=== PATIENT | male | born 1960 | race Caucasian/White ===

== ENCOUNTER 2018-11-20 16:58 | Inpatient (IN) ==
[2018-11-20] MEDS ORDERED: LASIX IV ONE ×2 (17:39→18:44)
[2018-11-20] MEDS ORDERED: DUONEB (A & A) INH ONE (17:39)
--- NOTE | 2018-11-20 17:45 | PROVIDER DOCUMENTATION ---
HPI-Respiratory General - General Chief Complaint: Shortness of Breath Stated Complaint: SOB Time Seen by Provider: 11/20/18 17:30 Source: EMS Allergies/Adverse Reactions: Patient Allergies Allergy/AdvReac Type Severity Reaction Status Date / Time sulfacetamide Allergy Intermediate EYE Verified 04/29/18 14:24 SWELLING Iodinated Contrast- Oral and Allergy Unknown Unknown Verified 04/29/18 14:24 IV Dye NSAIDS (Non-Steroidal AdvReac Unknown Verified 04/29/18 14:24 Anti-Inflamma Home Medications: Home Medication List Medication Instructions Recorded Confirmed Last Taken Type Allopurinol [Zyloprim] 300 mg PO DAILY 01/28/17 04/29/18 03/17/18 07:00 History Azelastine 0.05% Oph Solution 1 drop BOTH EYES BID 01/28/17 04/29/18 03/17/18 07 :00 History [Optivar 0.05% Oph Solution] Divalproex E.r. [Depakote ER] 1,500 mg PO QHS 01/28/17 04/29/18 03/16/18 21:00 History Docusate Calcium 240 mg PO EVERY OTHER DAY 01/28/17 04/29/18 03/16/18 09:00 History Finasteride 5 mg PO HS 01/28/17 04/29/18 03/16/18 19:00 History Furosemide 40 mg PO DAILY 01/28/17 04/29/18 03/17/18 07:00 History Levothyroxine [Synthroid] 137 microgm PO .DAILY AT 0600 01/28/17 04/29/18 06:00 History Montelukast [Singulair] 10 mg PO QHS 01/28/17 04/29/18 03/16/18 19:00 History Multivitamins/Minerals [Centrum 1 each PO DAILY 01/28/17 04/29/18 03/17/18 07: 00 History Tablet] Omeprazole 20 mg PO DAILY 01/28/17 04/29/18 03/17/18 07:00 History Polyethylene Glycol 3350 [Miralax] 17 gm PO BID 01/28/17 04/29/18 03/16/18 21: 00 History Quetiapine [Seroquel] 300 mg PO TID 01/28/17 04/29/18 03/17/18 07:00 History SIMVAstatin [Zocor] 10 mg PO QHS 01/28/17 04/29/18 03/16/18 19:00 History Tamsulosin [Flomax] 0.4 mg PO DAILY 01/28/17 04/29/18 03/17/18 07:00 History Albuterol 2.5MG/Ipratrop 0.5MG 3 ml .SEE ORDER Q6H PRN PRN #20 neb 02/18/1808/07 Unknown Rx [Duoneb (A & A)] Aspirin EC 325 mg PO DAILY 03/11/18 04/29/18 03/17/18 07:00 History Diltiazem [Cardizem] 30 mg PO TID #90 tab 03/16/18 04/29/18 03/17/18 07:00 Rx Metoprolol [Lopressor] 100 mg PO BID #60 tab 03/16/18 04/29/18 03/17/18 07:00 Rx Apixaban [Eliquis] 5 mg PO BID 04/29/18 04/29/18 Unknown History Budesonide/Formoterol Fumarate 2 puff IN BID 04/29/18 04/29/18 Unknown History [Symbicort 80-4.5 Mcg Inhaler] Cholecalciferol (Vitamin D3) 1 cap PO DAILY 04/29/18 04/29/18 Unknown History [Vitamin D3] Dextran 70/Hypromellose 1 drop BOTH EYES 4XDAY 04/29/18 04/29/18 Unknown History [Artificial Tears] Icosapent Ethyl [Vascepa] 2 cap PO BID 04/29/18 04/29/18 Unknown History Lubiprostone [Amitiza] 1 cap PO BID 04/29/18 04/29/18 Unknown History Clonazepam [Klonopin] 1 mg PO QHS #0 05/03/18 04/29/18 03/16/18 21:00 Rx Levofloxacin [Levaquin] 500 mg PO DAILY #45 tab 05/03/18 Unknown Rx - History of Present Illness-Resp Nature of Presenting Problem: Patient has history of CHF and AFIB, has been SOB with productive cough for a bout a week, worsening. He saw his PCP a few days ago and was put on augmentin bid 2 days ago. Noted by home health today to be decreased activity level, pale , rhonchi on lungs, mild distress. Canary Breeder notes green sputum. Quality of Pain: reports: none Onset/Duration: reports: 1 week ago Timing: reports: still present, constant, changing over time, getting worse Context: reports: multiple patients with similar complaints, recent URI Exposure: reports: unknown cause Cough Quality/Degree: reports: moderate, productive cough, sputum Episode Frequency: occasional episodes Current Respiratory Medication Therapy: Initiated none Modifying Factors: improves with: nothing. worse with: coughing, lying down Associated Symptoms: reports: cough, shortness of breath, sweaty, other (slight decreased mental status) Similar Symptoms Previously?: No Recently seen or treated by another doctor?: Yes (put on augmentin) Review of Systems - Adult - REVIEW OF SYSTEMS - ADULT ROS:: ROS per family (per process project engineer) Constitutional: reports: no symptoms reported Eyes: reports: no symptoms reported Ears, Nose, Mouth & Throat: reports: no symptoms reported Cardiovascular: reports: see HPI, edema, irregular heart rate Respiratory: reports: see HPI, cough, dyspnea on exertion, excessive sputum production, shortness of breath Gastrointestinal: reports: no symptoms reported Genitourinary: reports: no symptoms reported Musculoskeletal: reports: no symptoms reported Integumentary: reports: see HPI, other (pale) Neurological: reports: no symptoms reported Psychiatric: reports: no symptoms reported Endocrine: reports: no symptoms reported Hematologic/Lymphatic: reports: no symptoms reported Allergic/Immunologic: reports: no symptoms reported All Other Systems: Reviewed and Negative Past History - Adult - PAST MEDICAL HISTORY-ADULT Review of Records: reports: Old Records Reviewed, Nursing Assessment Review, Medications Reviewed, Social history reviewed & non-contributory. Major Childhood Illnesses: reports: other (MR) Cardiovascular: reports: cardiac disease, A-Fib, CHF, HTN, hyperlipidemia, pacemaker Respiratory: reports: asthma, COPD Gastrointestinal: reports: denies history Obstetrical/Gynecological: reports: denies history Genitourinary: reports: kidney disease Musculoskeletal: reports: denies history Neurological: reports: cognitive dysfunction (MR), Seizures/Epilepsy Psychiatric: reports: anxiety, bipolar Endocrine/Immune: reports: thyroid disorder Other Conditions: reports: denies history - PRIOR SURGERIES/PROCEDURES Surgical/Procedure History: reports: pacemaker, hernia repair, other (partial kidney) - IMMUNIZATION STATUS Childhood Immunizations: See Nurse Assessment Flu Vaccine: See Nurse Assessment - FAMILY HISTORY Family History: reviewed, not pertinent - SOCIAL HISTORY Smoking: non-smoker Substance Use: none/never Alcohol Use Frequency: never Living Situation: care facility Physical Exam-General - PHYSICAL EXAM-ADULT Initial Vital Signs Reviewed: Yes (VSSAF) - CONSTITUTIONAL General Appearance: appears well, alert, no apparent distress - EYES Eyes: PERRL/EOMI, pale conjunctivae - HEAD, EARS, NOSE, MOUTH & THROAT HENMT: normocephalic/atraumatic, dental decay, other (dry mucous membranes) - NECK Neck: non-tender, full range of motion, supple, normal inspection - RESPIRATORY Respiratory: chest non-tender, no pleuratic chest pain, no respiratory distress , decreased breath sounds, rhonchi, wheezing, dull on percussion, increased rate - CARDIOVASCULAR Cardiovascular: normal peripheral pulses, no gallop, no JVD, no murmur, irregularly irregular, PMI displaced laterally - GASTROINTESTINAL (ABDOMEN) Abdominal Exam: normal bowel sounds, non tender, soft, no organomegaly, no pulsatile mass - LYMPHATIC Lymphatic: no adenopathy - MUSCULOSKELETAL Back Exam: normal inspection. negative: decreased range of motion Extremity: normal range of motion, non-tender, no calf tenderness, normal capillary refill, pedal edema - SKIN Integumentary: normal turgor, warm/dry, pallor - NEUROLOGIC Neurologic: campus interviews intern II-XII nml as tested, no motor/sensory deficits, EOM palsy, other (syarthric) - PSYCHIATRIC Psych/Mental Status: normal mood/affect Progress - PLAN OF CARE/RESULTS Progress/Plan/Lab Results: Vital Signs - 8 hr 11/20/18 17:23 11/20/18 17:29 11/20/18 17:31 Temperature 97.1 F L Pulse Rate 85 Respiratory Rate 18 Blood Pressure 161/69 161/69 O2 Sat by Pulse Oximetry 95 98 97 11/20/18 17:32 11/20/18 17:40 11/20/18 17:50 Temperature Pulse Rate 84 82 79 Respiratory Rate 20 17 18 Blood Pressure 131/73 O2 Sat by Pulse Oximetry 98 99 11/20/18 17:59 11/20/18 18:00 11/20/18 18:10 Temperature Pulse Rate 85 89 88 Respiratory Rate 15 17 20 Blood Pressure O2 Sat by Pulse Oximetry 95 99 91 L 11/20/18 18:20 11/20/18 18:30 11/20/18 18:32 Temperature Pulse Rate 89 84 89 Respiratory Rate 23 15 16 Blood Pressure 124/92 O2 Sat by Pulse Oximetry 99 99 100 Laboratory Results - last 24 hr 11/20/18 11/20/18 11/20/18 17:25 17:25 17:25 WBC 4.30 L RBC 4.30 L Hgb 12.4 L Hct 39.5 L MCV 91.9 MCH 28.8 MCHC 31.4 L RDW Std Deviation 14.9 H Plt Count 157 MPV 11.3 H Immature Gran % (Auto) 0.7 H Neut % (Auto) 61.2 Lymph % (Auto) 24.4 [place] % (Auto) 12.1 H Eos % (Auto) 1.4 Baso % (Auto) 0.2 Immature Gran # (Auto) 0.03 Neut # (Auto) 2.63 Lymph # (Auto) 1.05 L [place] # (Auto) 0.52 Eos # (Auto) 0.06 Baso # (Auto) 0.01 PT INR Specimen Type Sample Site pH pCO2 pO2 HCO3 Base Excess Oxyhemoglobin ABG O2 Sat (Calculated) ABG O2 Saturation ABG Carboxyhemoglobin ABG Methemoglobin Naldo Test A-a O2 Difference Total Hemoglobin Lactate Liter Flow Blood Gas Modality FiO2 % Sodium 135 L Potassium 5.4 H Chloride 92 L Carbon Dioxide 36 H Anion Gap 7 BUN 33 H Creatinine 1.5 H Estimated GFR/1.73 m2 48 BUN/Creatinine Ratio 22 Glucose 99 POC Glucose Calculated Osmolality 277 Calcium 9.4 Magnesium 1.6 Total Bilirubin 0.18 L AST 11 ALT 8 L Alkaline Phosphatase 67 Creatine Kinase 22 L Troponin T Xig-A-Flrabtjxrxh Pept 2195 H Total Protein 5.5 L Albumin 3.3 L Globulin 2.2 Albumin/Globulin Ratio 1.5 Valproic Acid 11/20/18 11/20/18 11/20/18 17:25 17:25 17:25 WBC RBC Hgb Hct MCV MCH MCHC RDW Std Deviation Plt Count MPV Immature Gran % (Auto) Neut % (Auto) Lymph % (Auto) [place] % (Auto) Eos % (Auto) Baso % (Auto) Immature Gran # (Auto) Neut # (Auto) Lymph # (Auto) [place] # (Auto) Eos # (Auto) Baso # (Auto) PT 14.7 INR 1.06 Specimen Type Sample Site pH pCO2 pO2 HCO3 Base Excess Oxyhemoglobin ABG O2 Sat (Calculated) ABG O2 Saturation ABG Carboxyhemoglobin ABG Methemoglobin Naldo Test A-a O2 Difference Total Hemoglobin Lactate Liter Flow Blood Gas Modality FiO2 % Sodium Potassium Chloride Carbon Dioxide Anion Gap BUN Creatinine Estimated GFR/1.73 m2 BUN/Creatinine Ratio Glucose POC Glucose Calculated Osmolality Calcium Magnesium Total Bilirubin AST ALT Alkaline Phosphatase Creatine Kinase Troponin T < 0.010 Mld-O-Tjdqrhglpal Pept Total Protein Albumin Globulin Albumin/Globulin Ratio Valproic Acid 37.70 L 11/20/18 11/20/18 17:50 18:14 WBC RBC Hgb Hct MCV MCH MCHC RDW Std Deviation Plt Count MPV Immature Gran % (Auto) Neut % (Auto) Lymph % (Auto) [place] % (Auto) Eos % (Auto) Baso % (Auto) Immature Gran # (Auto) Neut # (Auto) Lymph # (Auto) [place] # (Auto) Eos # (Auto) Baso # (Auto) PT INR Specimen Type ARTERIAL Sample Site R RADIAL pH 7.39 pCO2 59 H* pO2 131 H HCO3 31.7 H Base Excess 8.7 H Oxyhemoglobin 96.0 ABG O2 Sat (Calculated) 17.5 ABG O2 Saturation 98.6 ABG Carboxyhemoglobin 1.50 ABG Methemoglobin 1.1 Naldo Test YES A-a O2 Difference 80.0 Total Hemoglobin 12.8 Lactate 0.70 Liter Flow 5.0 Blood Gas Modality CANNULA FiO2 % 40.0 Sodium Potassium Chloride Carbon Dioxide Anion Gap BUN Creatinine Estimated GFR/1.73 m2 BUN/Creatinine Ratio Glucose POC Glucose 100 Calculated Osmolality Calcium Magnesium Total Bilirubin AST ALT Alkaline Phosphatase Creatine Kinase Troponin T Wlc-H-Pmkoxaekhft Pept Total Protein Albumin Globulin Albumin/Globulin Ratio Valproic Acid Orders Category Date Time Status Finger Stick Blood Sugar (ED) DIRECTED Care 11/20/18 17:20 Active Saline Loc NOW Care 11/20/18 17:20 Active CHEST-PORTABLE [RAD] Stat Exams 11/20/18 17:22 Completed ABG [RESP] Routine Lab 11/20/18 17:50 Completed BLOOD CULTURE [BLDCUL] Stat Lab 11/20/18 18:00 Results CBC WITH ELECTRONIC DIFF [HEME] Stat Lab 11/20/18 17:25 Completed CK PROFILE [SP CHEM] Stat Lab 11/20/18 17:25 Completed COMPREHENSIVE METABOLIC PANEL [CHEM] Stat Lab 11/20/18 17:25 Completed INFLUENZA SCREEN A/B Stat Lab 11/20/18 18:25 Received LACTATE, PLASMA [CHEM] Stat Lab 11/20/18 18:00 Received MAGNESIUM [CHEM] Stat Lab 11/20/18 17:25 Completed OCCULT BLOOD SCREENING [STOOL] Stat Lab 11/20/18 17:37 Uncollected PRO B-NATRIURETIC PEPTIDE Stat Lab 11/20/18 17:25 Completed PROTIME WITH INR [COAG] Stat Lab 11/20/18 17:25 Completed TROPONIN T Stat Lab 11/20/18 17:25 Completed TYPE & SCREEN [BBK] Stat Lab 11/20/18 17:23 Results VALPROIC ACID [TDM] Stat Lab 11/20/18 17:25 Completed Albuterol 2.5MG/Ipratrop 0.5MG [Duoneb (A & A)] Med 11/20/18 17:39 Discontinued 3 ml INH NOW ONE Furosemide [Lasix] Med 11/20/18 17:39 Discontinued 40 mg IV NOW ONE Aerosol Treatments Routine Oth 11/20/18 17:39 Completed Aerosol Treatments Stat Oth 11/20/18 17:39 Completed EKG [EKG] Stat Ther 11/20/18 17:21 Ordered Result Diagrams: 11/20/18 17:25 11/20/18 17:25 - REASSESSMENT Reassessment #1 Time Reassessed: 18:47 Status: worsening (Patient more agitated, and now has gone into afib with RVR at 130. [facility] process project engineer states he is never like this at home and they are uncomfortable taking him back home without overnight observation since there are no nurses at home.) - XRAY 1 XRAY Study: Chest Impression: Abnormal, See EMR Report (Signed EXAM: CHEST-PORTABLE INDICATION: sob TECHNIQUE: One view COMPARISON: 10/16/2018 FINDINGS: There is stable elevation of the right hemidiaphragm. Inspiration is suboptimal. There is central vascular crowding due to the poor inspiration. There is probably at least mild atelectasis at the lung bases. There is no discrete pleural fluid collection or pneumothorax. The cardiomediastinal silhouette is essentially unremarkable. IMPRESSION: Low lung volumes and likely mild bibasilar atelectasis. Electronically signed by Boyd Zhang 2018 6:31 PM 01/31/19 1831 Interpreting Physician: Boyd Zhang MD Dictated Date/Time: 11/20/18 183 cc: Nico Rock MD; Kolby Lim MD ) - CONSULTS/PCP/HOSPITALIST Notification #1 *Consult/PCP/Hospitalist*: Hospitalist paged at 1850 Departure - Departure Date of Disposition Decision: 11/20/18 Time of Disposition Decision: 18:48 DIAGNOSIS: Chronic atrial fibrillation with RVR Acute exacerbation of CHF (congestive heart failure) Qualifiers: Heart failure type: systolic Qualified Code(s): I50.23 - Acute on chronic systolic (congestive) heart failure Disposition: ADMITTED INPATIENT 09 Certified Medical Emergency: Emergent Condition: Fair Referrals and Follow-Ups: Kolby Lim MD [Primary Care Provider] - - Critical Care Note This patient required my direct & personal management of CC.: Yes Total Time (mins): 45 Critical Care Statement: This patient required my direct personal management to treat or rule out processes, the absence of which, could potentiallly result in sudden, clinically significant life or limb threatening deterioration. Attestation - Physician/ LUCIANA Attestation Patient care was provided by Advanced Practice Provider:: No The physician spent face to face time with patient:: Yes Advanced Practice Provider documentation review:: Supervising physician onsite and consulted in the evaluation and care of this patient. The physician did have a face to face encounter with the patient.
[2018-11-20 17:51] LABS: BASO# 0.01 X1000 (0.0-0.2); BASO% 0.2 % (0.0-0.8); EOS# 0.06 X1000 (0.0-0.7); EOS% 1.4 % (0.0-10.0); HEMATOCRIT 39.5 % (42.0-52.0); HEMOGLOBIN 12.4 g/dL (14.0-18.0); IMM GRAN# 0.03 X1000 (0.0-0.04); IMM GRAN% 0.7 % (0.0-0.5); LYMPH# 1.05 X1000 (1.2-3.4); LYMPH% 24.4 % (20.5-51.1); MCH 28.8 PG (27-31); MCHC 31.4 g/dL (33-37); MCV 91.9 FL (81-99); MONO# 0.52 X1000 (0.11-0.59); MONO% 12.1 % (1.7-9.3); MPV 11.3 FL (7.4-10.4); NEUT# 2.63 X1000 (1.4-6.5); NEUT% 61.2 % (42.2-75.2); PLT 157 X1000 (130-400); RDW 14.9 % (11.5-14.5)
[2018-11-20 17:55] LABS: INR 1.06; PROTIME 14.7 Seconds (11.0-16.0)
[2018-11-20 17:59] LABS: ALLEN TEST YES; BE 8.7 mmoll (-3.0-3.0); BLOOD TYPE ARTERIAL; HCO3-(ACT) 31.7 mmoll (20.0-26.0); METHB 1.1 % (0.0-1.5); O2(CT) 17.5 mL/dL (15.0-23.0); PO2(98.6) 131 mmHg (60-100); SAMPLE BLOOD; SAO2 98.6 % (95.0-100.0); THB 12.8 g/dL (11.5-17.4); pH(98.6) 7.39 (7.35-7.45)
[2018-11-20 18:02] LABS: MODALITY CANNULA; PCO2(98.6) 59 mmHg (35-45)
[2018-11-20 18:12] LABS: ALB/GLOB RATIO 1.5; ALBUMIN 3.3 g/dL (3.5-5.0); CALCIUM 9.4 mg/dL (8.8-10.2); CREATININE 1.5 mg/dL (0.7-1.2); MAGNESIUM 1.6 mg/dL (1.5-2.7); POTASSIUM 5.4 mmol/L (3.5-5.1); TOTAL BILIRUBIN 0.18 mg/dL (0.20-1.00); TOTAL PROTEIN 5.5 g/dL (6.3-8.3)
--- NOTE | 2018-11-20 18:34 | Diag Imaging Result Doc PS360 ---
EXAM: CHEST-PORTABLE INDICATION: sob TECHNIQUE: One view COMPARISON: 10/16/2018 FINDINGS: There is stable elevation of the right hemidiaphragm. Inspiration is suboptimal. There is central vascular crowding due to the poor inspiration. There is probably at least mild atelectasis at the lung bases. There is no discrete pleural fluid collection or pneumothorax. The cardiomediastinal silhouette is essentially unremarkable. IMPRESSION: Low lung volumes and likely mild bibasilar atelectasis. Electronically signed by Boyd Zhang 11/20/2018 6:31 PM
[2018-11-20] MEDS ORDERED: CARDIZEM IV ONE ×3 (18:46→19:25)
[2018-11-20] MEDS ORDERED: LANOXIN IV ONE (19:26)
[2018-11-20 19:58] LABS: URINE SOURCE CLEAN CATCH
--- NOTE | 2018-11-20 19:58 | HISTORY AND PHYSICAL ---
HISTORY OF PRESENT ILLNESS: Mr. 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 Patient brought to the emergency room. They were concerned about his blood pressure. They are getting readings of 100/90, and he seemed to have a rapid heart rate. They had recently treated him for I think pneumonia and upper respiratory tract infection. He is not able to give you a lot a history and never complains. They have not noticed a lot of coughing or sputum production recently. No sign of indication of chest pain, but they noticed in the emergency room that he was in atrial fibrillation for which he has been here before, and rate would get into the 130s and 140s with rapid ventricular rate. So, I will plan to admit him to see if we can get the rate under control. I do not see any sign of active cardiac ischemia. He was admitted back in February for similar dyspnea, decreased appetite, questionable pneumonia. PAST MEDICAL HISTORY: Followed by Dr. Federico Lopez. 1. History of congestive heart failure. 2. Chronic atrial fibrillation. 3. Hypertension. 4. Hypothyroidism. 5. He has a pacemaker. I believe it is an ICD. 6. 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 In 2012 received implantation of permanent pacemaker dual-chamber, so I think it is just a dual-chamber pacemaker per Dr. Hollie Mar on 06/15/2013. At that time, they had some difficulty with his right ventricular lead. December 2013, they had to reposition the right ventricular lead. In fact, he got an additional right ventricular lead in [place]. He has had syncopal episode. Last pacemaker check: I think he gets it checked once year with no evidence of malfunction back in September 2017, but I think it has been checked since then. He is usually pacemaker dependent. 7. He has a history of COPD. 8. I think he has had some hyperglycemia. I do not know if he has been diagnosed with diabetes. 9. He has a known history of chronic kidney disease. I am not sure what stage it is. His creatinine is 1.5. In looking back, he has had a creatinine 1.2 back in April 2018. His values have run from 1.2 to 1.9. SURGICAL HISTORY: I think he had an inguinal hernia repair, and he has had tonsils out. SOCIAL HISTORY: He lives in a chcf with no children. His father does keep in touch with him. FAMILY HISTORY: Unable to obtain. MEDICATION: On review of his medications, he takes albuterol treatments. He is on allopurinol 300 mg a day. Aspirin 81 mg a day. Thorazine he was taking 50 mg at bedtime, and I think that has been changed. Finasteride 5 mg a day. Furosemide 40 mg a day. Synthroid 137 mcg a day. Amitiza 24 mcg twice a day. Metoprolol 50 mg a day. Singulair 10 mg a day. Simvastatin 10 mg a day. Seroquel 300 mg 3 times a day. Flomax 0.4 mg a day. Prilosec. ALLERGIES: Sulfa drugs,contrast, and nonsteroidal anti-inflammatories. REVIEW OF SYSTEMS: Constitutional: Talking to the nurse and the oracle dba, they have not noticed fever or chills. HEENT: No change in visual or hearing acuity. Neck: No neck pain. No cervical adenopathy. Respiratory: They could not really tell; it seemed like he was a little more short of breath in the last couple days. Cardiovascular: Concerned about his blood pressures, but not indicating any chest pain or sign of distress. No cyanosis appreciated. Gastrointestinal and Genitourinary: No gross hematuria or hematochezia. He does have benign prostatic hypertrophy, but no troubles with urinary retention that they are aware of. Musculoskeletal and Neurologic: No focal complaints. Endocrinologic/ Hematologic: He has a history of hypothyroidism and questionable diabetes. PHYSICAL EXAMINATION: VITAL SIGNS: In the emergency room temperature 97.1 degrees, pulse 89, respirations 16, blood pressure 124/92. HEENT: His pupils are equal and round. NECK: No distended neck veins. LUNGS: Clear in all lung nagy, anterior and posterior. CARDIOVASCULAR: His monitor shows atrial fibrillation at a rate of 140. It is irregular rhythm and irregular rate. ABDOMEN: Soft. SKIN: Warm and dry. HEIGHT: 5 feet 11 inches. EXTREMITIES: He has trace edema in the ankles to mid mcgill. VASCULAR: I do not appreciate distended central venous pressure or distended neck veins. DIAGNOSTIC STUDIES: White count 4300, hematocrit 39, platelet count 157,000. Sodium 135, potassium 5.4, chloride 92, BUN 33, creatinine 1.5. Pro-time 14.7. Valproic acid was 37.7; he has not had any recent seizures that they are aware of. Blood gas: PH is 7.39 , pCO2 is 59, PO2 is 131, O2 saturation is 98%, that was on 40% FiO2. He does have a history of obstructive sleep apnea but he does not tolerate his CPAP and does not wear it. Chest x-ray: Low lung volumes with likely mild bibasilar atelectasis. ASSESSMENT AND PLAN: 1. Atrial fibrillation with rapid ventricular rate. He is on Cardizem at home. We have given him some IV Cardizem, and I may start him on some digoxin. He is on Eliquis 5 mg twice a day. We will continue that. Dr. Lopez follows him. We may need to consider beta juan. His blood pressure was running in the mid 80s. He appeared to be comfortable, but wanted to be careful with his blood pressure when trying to get his rate down. Try and put him up in [facility]. 2. Congestive heart failure. Echocardiogram done on 03/11/2018. Ejection fraction was probably normal in the order of 55 to 60 with apical septal dyssynchrony due to presence of pacemaker. No significant valvular abnormalities. This was back in February; I do not know if it would be reasonable to try and do another echo while he is here. I will defer that to Cardiology. It appears he has diastolic congestive heart failure. 3. History of hypothyroidism. Of course, we will check his thyroid, T4 and TSH. 4. Chronic kidney disease. Creatinine is 1.5, which is kind of where he has been running. Electrolytes unremarkable. Potassium is 5.4. He is taking Lasix every day. I think he takes 40 mg in the morning and 20 in the evening. 5. Mentally retarded. Aware. He lives in a chcf. 6. History of benign prostatic hypertrophy. Continue his current medications. 7. Recently treated for upper respiratory tract infection or I think pneumonia, but his lungs look clear. I do not see any sign of active pneumonia at this point. cc: Naldo Narvaez MD MTDD
[2018-11-20 20:12] LABS: BILIRUBIN URINE NEGATIVE (NEGATIVE); BLOOD URINE NEGATIVE (NEGATIVE); COLOR YELLOW; GLUCOSE URINE NEGATIVE (NEGATIVE); KETONE URINE NEGATIVE (NEGATIVE); LEUKOCYTES URINE NEGATIVE (NEGATIVE); NITRITE URINE NEGATIVE (NEGATIVE); PROTEIN URINE NEGATIVE (NEGATIVE); SP GRAVITY URINE 1.006; TURBIDITY URINE CLEAR (CLEAR); UR EPITHELIAL CELLS <10 /HPF (<10); URINE BACTERIA NEGATIVE /HPF; URINE RBC <10 /HPF (<10); URINE WBC <10 /HPF (<10); UROBILINOGEN URINE NORMAL (NORMAL)
[2018-11-20] MEDS: NS 1,000 ML IV SCH (20:37)
[2018-11-20] MEDS: CARDIZEM PO SCH (20:37)
[2018-11-20] MEDS ORDERED: TYLENOL PO PRN (20:37)
[2018-11-20] MEDS ORDERED: ZOFRAN IV PRN (20:37)
[2018-11-20] MEDS: LASIX IV SCH (20:37)
[2018-11-20] MEDS: MIRALAX PO SCH (21:00)
[2018-11-20] MEDS: KLONOPIN PO SCH (21:00)
[2018-11-20] MEDS: LOPRESSOR PO SCH (21:00)
[2018-11-21] MEDS: PROSCAR PO SCH ×2 (00:25→21:00)
[2018-11-21] MEDS: SEROQUEL PO SCH ×4 (00:25→20:59)
[2018-11-21] MEDS: ZOCOR PO SCH ×2 (00:25→21:00)
[2018-11-21] MEDS: ELIQUIS PO SCH ×3 (00:25→20:59)
[2018-11-21] MEDS: SINGULAIR PO SCH ×2 (00:25→21:00)
[2018-11-21] MEDS: DEPAKOTE ER PO SCH ×2 (00:26→20:59)
[2018-11-21] MEDS: ICOSAPENT ETHYL PO SCH ×3 (00:26→20:58)
[2018-11-21] MEDS: TAMIFLU PO SCH ×3 (00:26→21:00)
[2018-11-21] MEDS: AMITIZA PO SCH ×3 (00:27→20:59)
[2018-11-21] MEDS: OPTIVAR 0.05% OPH SOLUTION BOTH EYES SCH ×2 (01:03→10:05)
[2018-11-21] MEDS: TEARISOL OPH SOLUTION BOTH EYES SCH ×4 (01:03→16:44)
[2018-11-21] MEDS: CARDIZEM PO SCH ×4 (02:07→21:00)
[2018-11-21] MEDS: DUONEB (A & A) INH PRN ×3 (04:30→21:05)
[2018-11-21] MEDS: SYNTHROID PO SCH (05:12)
[2018-11-21 05:39] LABS: BASO# 0.02 X1000 (0.0-0.2); BASO% 0.4 % (0.0-0.8); EOS# 0.07 X1000 (0.0-0.7); EOS% 1.4 % (0.0-10.0); HEMATOCRIT 37.3 % (42.0-52.0); HEMOGLOBIN 11.8 g/dL (14.0-18.0); IMM GRAN# 0.02 X1000 (0.0-0.04); IMM GRAN% 0.4 % (0.0-0.5); LYMPH# 1.03 X1000 (1.2-3.4); LYMPH% 19.9 % (20.5-51.1); MCH 28.9 PG (27-31); MCHC 31.6 g/dL (33-37); MCV 91.4 FL (81-99); MONO# 0.59 X1000 (0.11-0.59); MONO% 11.4 % (1.7-9.3); MPV 12.3 FL (7.4-10.4); NEUT# 3.45 X1000 (1.4-6.5); NEUT% 66.5 % (42.2-75.2); PLT 162 X1000 (130-400); RBC 4.08 XMIL (4.7-6.1); RDW 14.8 % (11.5-14.5); WBC 5.18 X1000 (4.8-10.8)
[2018-11-21 06:59] LABS: ALB/GLOB RATIO 1.2; ALBUMIN 3.1 g/dL (3.5-5.0); CALCIUM 8.9 mg/dL (8.8-10.2); CREATININE 1.3 mg/dL (0.7-1.2); MAGNESIUM 1.6 mg/dL (1.5-2.7); POTASSIUM 4.4 mmol/L (3.5-5.1); TOTAL BILIRUBIN 0.18 mg/dL (0.20-1.00); TOTAL PROTEIN 5.7 g/dL (6.3-8.3)
--- NOTE | 2018-11-21 07:32 | EKG Report ---
Test Performed on : 11/20/2018 5:12:53 PM Test Reason : short of breath Blood Pressure : / mmHG Vent. Rate : 083 BPM Atrial Rate : 083 BPM P-R Int : 192 ms QRS Dur : 178 ms QT Int : 420 ms P-R-T Axes : 062 -81 087 degrees QTc Int : 493 ms Normal sinus rhythm. Possible Left atrial enlargement Left axis deviation Nonspecific intraventricular block Possible Lateral infarct (cited on or before 09-JUN-2018) Inferior infarct (cited on or before 09-JUN-2018) Abnormal ECG When compared with ECG of 16-OCT-2018 20:14, (Unconfirmed) Previous ECG has undetermined rhythm, needs review Unconfirmed Result
--- NOTE | 2018-11-21 07:35 | EKG Report ---
Test Performed on : 11/21/2018 07:27:29 AM Test Reason : chest pain Blood Pressure : / mmHG Vent. Rate : 074 BPM Atrial Rate : 074 BPM P-R Int : 204 ms QRS Dur : 180 ms QT Int : 416 ms P-R-T Axes : 051 -84 086 degrees QTc Int : 461 ms atrial-sensed ventricular-paced complexes Left axis deviation Nonspecific intraventricular block Possible Lateral infarct , age undetermined Inferior infarct (cited on or before 09-JUN-2018) Abnormal ECG When compared with ECG of 20-NOV-2018 18:54, (Unconfirmed) No significant change was found Borderline criteria for Lateral infarct are now present Confirmed by Estrellita DISLA, Sukumar Arthur ([id number]) on 11/23/2018 5:38:39 PM
[2018-11-21] MEDS ORDERED: LASIX PO SCH (09:00)
[2018-11-21] MEDS ORDERED: TAMIFLU PO SCH (09:00)
[2018-11-21] MEDS ORDERED: VITAMIN D PO SCH (09:00)
--- NOTE | 2018-11-21 09:34 | PROGRESS NOTE ---
DATE: 11/21/2018 SUBJECTIVE: Mr. De Leon was awake. He seemed to be comfortable and was eating breakfast. Monitor showed that he is paced rhythm. I admitted him yesterday evening with atrial fibrillation and rapid ventricular rate. He has remained afebrile. Temperature 97.4 degrees , pulse 70, and respirations 19. Blood pressure 112/63. HEENT: Pupils were equal, round, and no distended neck veins. No cervical adenopathy. Lungs: Clear anterolateral. Cardiovascular : Regular rhythm and rate without murmur or S3. Abdomen: Soft. Skin: Warm and dry. Urine output looked like it was 480. Blood sugars 107. EKG from this morning was read as normal sinus rhythm. I suspect it was paced rhythm. LABORATORY: White count 5180, hematocrit 37, and platelet count 162,000. Sodium 137, potassium 4.4, chloride 92, BUN 35, and creatinine 1.3. Albumin 3.1. Note that his T4 was 2.84 and TSH was 0.04. Nasal swab was positive for influenza A. ASSESSMENT AND PLAN: 1. Influenza A. I think he is recovering. They were treating for respiratory tract infection last week. 2. Atrial fibrillation with rapid ventricular rate. He has a pacemaker. Rate has been controlled. He is now in paced rhythm. Cardiology has been asked just to look over the regimen I added digoxin to his regimen right now for his atrial fibrillation. He is on Cardizem 30 mg every 6 hours. We had given him some IV Cardizem yesterday. He is on digoxin 0.25 every morning which I just started, and he takes Lopressor 100 mg b.i.d. 3. History of seizure disorder. He has not had any recent seizures. He is on ER 1500 mg at bedtime. Continue that. 4. There was a question on hyperglycemia. I do not think he has had been diagnosed with diabetes. Sugars appear to be in the normal range. 5. Mental retardation. 6. Benign prostatic hypertrophy. He is on Flomax 0.4 mg a day. 7. Review of his orders complete. He is on Klonopin 1 mg at bedtime. ER 1500 mg at bedtime, Singulair 10 mg a day, Zocor 10 mg at bedtime. Allopurinol 300 mg a day. Eliquis 5 mg b.i.d. and aspirin 325 mg a day. He is getting eyedrops Azelastine 0.05% both eyes b.i.d., budesonide inhaler b.i.d., vitamin D 2000 units daily. His Cardizem 30 mg q.6. Docusate 240 mg daily. Proscar 5 mg at bedtime and I had diuresed him with some Lasix 40 mg IV q.12h. His volume status looks good. I should add to his list I think predominantly diastolic congestive heart failure. He has a history of hypothyroidism that appears to be euthyroid clinically. He is on Synthroid 137 mcg daily. History of constipation. Continue his MiraLAX 17 g b.i.d.. He is taking Amitiza 24 mcg b.i.d. cc: Naldo Narvaez MD MTDD
[2018-11-21] MEDS: VITAMIN D PO SCH (10:00)
[2018-11-21] MEDS: CENTRUM TABLET PO SCH (10:00)
[2018-11-21] MEDS: FLOMAX PO SCH (10:00)
[2018-11-21] MEDS: LOPRESSOR PO SCH ×2 (10:01→20:59)
[2018-11-21] MEDS: ASPIRIN EC PO SCH (10:01)
[2018-11-21] MEDS: ZYLOPRIM PO SCH (10:01)
[2018-11-21] MEDS: PRILOSEC PO SCH (10:01)
[2018-11-21] MEDS: MIRALAX PO SCH ×2 (10:01→21:00)
[2018-11-21] MEDS: LASIX IV SCH ×2 (10:04→21:00)
[2018-11-21] MEDS: LANOXIN IV SCH (10:04)
--- NOTE | 2018-11-21 11:46 | CARDIOLOGY CONSULTATION ---
DATE: 11/21/2018 HISTORY OF PRESENT ILLNESS: Mr. De Leon is a 58-year-old gentleman who is mentally retarded, lives in a fdc, was brought in. He had lower blood pressure and had symptoms of respiratory tract infection that is positive for flu. They noticed coughing with some expectoration of late. He has not had any further expectoration. At the present time, he was noted to have atrial fibrillation with rapid rate currently. His heart rate is under control. History could not be obtained from the patient. History was obtained from our office notes as he is significantly mentally retarded. PAST MEDICAL HISTORY: Mental retardation, chronic atrial fibrillation, hypertension, permanent pacemaker implantation, dual-chamber pacemaker implanted 06/15/2013 with a lead revision 06/20/2014, history of respiratory failure, history of pneumonia, history of sepsis 2018 with strep pneumonia, hypertension, hyperlipidemia, renal insufficiency, history of GI bleed currently stable, hypothyroidism, seizure disorder and profound mental retardation. MEDICATIONS: At home. Klonopin 2 mg, divalproex 3 tablets at bedtime finasteride 5, levothyroxine 137, Lasix 40 mg daily, metoprolol 50 b.i.d., allopurinol 300, Singulair 10, omeprazole 20, simvastatin 10 inhalers, Amitiza twice daily, azelastine, Eliquis 5 mg b.i.d. Vascepa 2 capsules twice daily, diltiazem 30 mg t.i.d., Seroquel 300 mg at bedtime, Symbicort, metolazone as needed on Saturday and Saturday twice a week. ALLERGIES: He is allergic to sulfacetamide, IV contrast dye. REVIEW OF SYSTEMS: Could not be obtained from the patient. FAMILY HISTORY: Unable to obtain. PHYSICAL EXAMINATION: Vital Signs: Blood pressure 124/90, pulse was 80 per minute. First and second heart sounds were heard. There was no S3 gallop. Respiratory System: Normal air entry. There are no crepitations or rhonchi. Abdomen: Soft. Central nervous system: Alert, moving extremities. ASSESSMENT AND PLAN: Mr. Kana De Leon is a 58-year-old gentleman who lives in a fdc, has severe mental retardation, hypertension, atrial fibrillation, permanent pacemaker implantation, hypothyroidism. Was noted to have cough and some expectoration. He was diagnosed to have flu. From a cardiac standpoint, current atrial fibrillation with rapid ventricular rate. Currently rates are under control. I have not made any changes. So, would continue with his beta blockers as well as Cardizem. He has been started on IV Lasix 40 twice daily. Would recommend decreasing it to 40 mg a day. For stroke prophylaxis, he is on Eliquis 5 mg twice daily. Continue with the same. Given the rate being under control, I will discontinue the digoxin at the present time. I have not made any other changes to his medications. Thank for the consult. cc: Patricio Norton MD
[2018-11-21] MEDS: SYMBICORT 80/4.5 MICROGM INHALER INH SCH (16:17)
[2018-11-21] MEDS: KLONOPIN PO SCH (20:59)
[2018-11-21] MEDS: NS 1,000 ML IV SCH (21:02)
[2018-11-22] MEDS: CARDIZEM PO SCH ×2 (02:34→08:08)
[2018-11-22] MEDS: OPTIVAR 0.05% OPH SOLUTION BOTH EYES SCH ×2 (02:54→08:21)
[2018-11-22] MEDS: TEARISOL OPH SOLUTION BOTH EYES SCH ×2 (02:55→08:21)
[2018-11-22] MEDS: DUONEB (A & A) INH PRN (03:08)
[2018-11-22] MEDS: SYNTHROID PO SCH (05:52)
[2018-11-22] MEDS: SYMBICORT 80/4.5 MICROGM INHALER INH SCH (06:07)
[2018-11-22 07:47] VITALS: BP 110/63
[2018-11-22] MEDS: FLOMAX PO SCH (08:08)
[2018-11-22] MEDS: SEROQUEL PO SCH (08:08)
[2018-11-22] MEDS: ELIQUIS PO SCH (08:08)
[2018-11-22] MEDS: ASPIRIN EC PO SCH (08:08)
[2018-11-22] MEDS: MIRALAX PO SCH (08:08)
[2018-11-22] MEDS: ZYLOPRIM PO SCH (08:08)
[2018-11-22] MEDS: LOPRESSOR PO SCH (08:09)
[2018-11-22] MEDS: VITAMIN D PO SCH (08:09)
[2018-11-22] MEDS: TAMIFLU PO SCH (08:09)
[2018-11-22] MEDS: CENTRUM TABLET PO SCH (08:09)
[2018-11-22] MEDS: ICOSAPENT ETHYL PO SCH (08:09)
[2018-11-22] MEDS: PRILOSEC PO SCH (08:09)
[2018-11-22] MEDS: AMITIZA PO SCH (08:09)
[2018-11-22] MEDS: LANOXIN IV SCH (08:10)
[2018-11-22] MEDS ORDERED: SURFAK PO SCH (09:00)
[2018-11-22] MEDS ORDERED: LASIX PO SCH (09:00)
--- NOTE | 2018-11-22 09:58 | DISCHARGE SUMMARY ---
ADMISSION DATE: 11/20/2018 DISCHARGE DATE: 11/22/2018 HISTORY: He is a 58-year-old male, mentally retarded, who lives in a snf for developmental disease. The patient brought to the emergency room. They were concerned about his blood pressure, and they were getting readings of 100/90, and he seemed to be generally lethargic. They noticed a rapid heart rate. In the emergency room, it was noted he had atrial fibrillation with rapid ventricular rate. He has chronic atrial fibrillation and, so, we admitted him. He had been working with upper respiratory tract infection the previous week, and nasal swabs revealed influenza A. The patient was started on some digoxin. Medication was adjusted. His rate is under control and he felt much better the following morning and did well. He was eating and we felt he was able to go home on 11/22/2018. LIST OF MEDICAL PROBLEMS: 1. History of congestive heart failure, systolic heart failure. 2. Chronic atrial fibrillation. 3. Hypertension. 4. Hypothyroidism. 5. He has a pacemaker, ICD. 6. Cardiac arrest in the past. 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 Hollie Mar. It was 06/15/2013, and they had some difficulty with right ventricular lead in December,. Reposition of the right ventricular lead. They check it regularly. No sign of malfunction. It was checked again I saw in September 2017. I think it is checked once a year. 7. History of chronic obstructive pulmonary disease. 8. Hyperglycemia. We patterned his sugars while he is here in the hospital. No sign of diabetes. 9. He has known chronic kidney disease, and his creatinine remained stable at 1.3. Blood sugars were mildly elevated. We did put him on a regular diet. So, plan to discharge him on 11/22/2018. DISCHARGE MEDICATIONS: 1. He will be on Zyloprim 300 mg a day. 2. Eliquis 5 mg b.i.d. 3. Artificial Tears 4 times a day for eye drops. 4. Aspirin 325 mg a day. 5. Azelastine or Optivar 0.05% b.i.d. 6. Symbicort 80/4.5 two puffs b.i.d. 7. Vitamin D 2000 units a day. 8. Klonopin 1 mg at bedtime. 9. We will stop his digoxin. 10. He is on Cardizem 30 mg q.6 hours which we went from 3 times a day to 4 times a day. 11. Depakote ER 1500 mg at bedtime. 12. Docusate calcium. 13. Surfak 240 mg p.o. every other day. 14. Proscar 5 mg at bedtime. 15. Lasix 40 mg p.o. daily. 16. Synthroid 137 mcg p.o. daily. 17. Amitiza 24 mcg b.i.d. 18. Lopressor 100 mg b.i.d. 19. Singulair 10 mg at bedtime. 20. Centrum tablet 1 a day. 21. Prilosec 20 mg a day. 22. Tamiflu. He has finished out his course. 23. Polyethylene glycol or MiraLAX 17 g b.i.d. 24. Seroquel 300 mg t.i.d. 25. Zocor 10 mg at bedtime. 26. Flomax 0.4 mg a day. 27. He is on Vascepa 2 caps b.i.d. cc: Naldo Narvaez MD
== END 2018-11-22 11:27 | disposition home or self-care (01) | DRG 308 ==
LOC: SUPCPDRO → ED 16:58 → EDIPHOLD 21:38 → SUATTDRO 21:38 → 3S 22:47
PROVIDERS: ATTEND Emergency Medicine
CPT/HCPCS: 71010; 71045; 80053; 80164; 80165; 81001; 82550; 82805; 82948; 83605; 83735; 83880; 84436; 84443; 84484; 85025; 85610; 86850; 86900; 86901; 87040; 87275; 87276; 87804; 93005; 93010; 94640; 94760; 94761; 96361; 96374; 96375; 96376; 99285; 99291; A9270; J1160; J1940; J7030; S0138; XXXXX

== ENCOUNTER 2019-01-30 07:01 | Inpatient (IN) ==
[~2019-01-30 07:01] MED LIST: ASPIRIN ONE
[2019-01-30] MEDS ORDERED: ASPIRIN PO ONE (07:05)
[2019-01-30 07:21] LABS: BASO# 0.01 X1000 (0.0-0.2); BASO% 0.1 % (0.0-0.8); EOS# 0.03 X1000 (0.0-0.7); EOS% 0.3 % (0.0-10.0); HEMATOCRIT 36.3 % (42.0-52.0); HEMOGLOBIN 11.5 g/dL (14.0-18.0); IMM GRAN# 0.02 X1000 (0.0-0.04); IMM GRAN% 0.2 % (0.0-0.5); LYMPH# 0.78 X1000 (1.2-3.4); LYMPH% 8.1 % (20.5-51.1); MCH 29.4 PG (27-31); MCHC 31.7 g/dL (33-37); MCV 92.8 FL (81-99); MONO# 1.14 X1000 (0.11-0.59); MONO% 11.8 % (1.7-9.3); MPV 11.2 FL (7.4-10.4); NEUT% 79.5 % (42.2-75.2); PLT 151 X1000 (130-400); RBC 3.91 XMIL (4.7-6.1); RDW 15.2 % (11.5-14.5); WBC 9.68 X1000 (4.8-10.8)
[2019-01-30 07:31] LABS: ALBUMIN 3.2 g/dL (3.5-5.0); CREATININE 1.4 mg/dL (0.7-1.2); POTASSIUM 4.8 mmol/L (3.5-5.1); TOTAL BILIRUBIN 0.3 mg/dL (0.20-1.00); TOTAL PROTEIN 6.2 g/dL (6.3-8.3)
[2019-01-30 07:33] LABS: INR 1.39; PROTIME 17.8 Seconds (11.0-16.0)
[2019-01-30 07:34] LABS: PTT 47.3 Seconds (22.3-41.8)
[2019-01-30] MEDS ORDERED: LOPRESSOR PO ONE (07:47)
[2019-01-30] MEDS ORDERED: ELIQUIS PO ONE (07:47)
--- NOTE | 2019-01-30 08:15 | Diag Imaging Result Doc PS360 ---
EXAM: CHEST-PORTABLE HISTORY: sob TECHNIQUE: Single view of the chest was performed portably. COMPARISON: 11/20/2018 FINDINGS: There is cardiomegaly with left transvenous pacemaker. There is pulmonary vascular congestion with increasing edema and effusion right lung. No pneumothorax. Lung volumes are reduced. Distended colon is noted beneath the right hemidiaphragm. IMPRESSION: Increasing pulmonary opacity and effusion particularly involving the right lung. Electronically signed by Michela Sanchez 01/30/2019 8:13 AM
[2019-01-30 08:48] LABS: BE 9.2 mmoll (-3.0-3.0); BLOOD TYPE ARTERIAL; HCO3-(ACT) 31.9 mmoll (20.0-26.0); METHB 1.1 % (0.0-1.5); O2(CT) 20.5 mL/dL (15.0-23.0); O2HB 91.2 % (95.0-99.0); PO2(98.6) 68 mmHg (60-100); SAMPLE BLOOD; SAO2 94.9 % (95.0-100.0); pH(98.6) 7.37 (7.35-7.45)
--- NOTE | 2019-01-30 09:01 | PROVIDER DOCUMENTATION ---
HPI-Respiratory General - General Chief Complaint: Shortness of Breath Stated Complaint: SOB Time Seen by Provider: 01/30/19 07:44 Source: group home records Allergies/Adverse Reactions: Patient Allergies Allergy/AdvReac Type Severity Reaction Status Date / Time sulfacetamide Allergy Intermediate EYE Verified 04/29/18 14:24 SWELLING Iodinated Contrast- Oral and Allergy Unknown Unknown Verified 04/29/18 14:24 IV Dye NSAIDS (Non-Steroidal AdvReac Unknown Verified 04/29/18 14:24 Anti-Inflamma Home Medications: Home Medication List Medication Instructions Recorded Confirmed Last Taken Type Allopurinol [Zyloprim] 300 mg PO DAILY 01/28/17 04/29/18 03/17/18 07:00 History Azelastine 0.05% Oph Solution 1 drop BOTH EYES BID 01/28/17 04/29/18 03/17/18 07:00 History [Optivar 0.05% Oph Solution] Divalproex E.r. [Depakote ER] 1,500 mg PO QHS 01/28/17 04/29/18 03/16/18 21:00 History Docusate Calcium 240 mg PO EVERY OTHER DAY 01/28/17 04/29/18 03/16/18 09:00 History Finasteride 5 mg PO HS 01/28/17 04/29/18 03/16/18 19:00 History Furosemide 40 mg PO DAILY 01/28/17 04/29/18 03/17/18 07:00 History Levothyroxine [Synthroid] 137 microgm PO .DAILY AT 0600 01/28/17 04/29/18 03/17/18 06:00 History Montelukast [Singulair] 10 mg PO QHS 01/28/17 04/29/18 03/16/18 19:00 History Multivitamins/Minerals [Centrum 1 each PO DAILY 01/28/17 04/29/18 03/17/18 07:00 History Tablet] Omeprazole 20 mg PO DAILY 01/28/17 04/29/18 03/17/18 07:00 History Polyethylene Glycol 3350 [Miralax] 17 gm PO BID 01/28/17 04/29/18 03/16/18 21:00 History Quetiapine [Seroquel] 300 mg PO TID 01/28/17 04/29/18 03/17/18 07:00 History SIMVAstatin [Zocor] 10 mg PO QHS 01/28/17 04/29/18 03/16/18 19:00 History Tamsulosin [Flomax] 0.4 mg PO DAILY 01/28/17 04/29/18 03/17/18 07:00 History Albuterol 2.5MG/Ipratrop 0.5MG 3 ml .SEE ORDER Q6H PRN PRN #20 neb 02/18/18 04/29/18 Unknown Rx [Duoneb (A & A)] Aspirin EC 325 mg PO DAILY 03/11/18 04/29/18 03/17/18 07:00 History Metoprolol [Lopressor] 100 mg PO BID #60 tab 03/16/18 04/29/18 03/17/18 07:00 Rx Apixaban [Eliquis] 5 mg PO BID 04/29/18 04/29/18 Unknown History Budesonide/Formoterol Fumarate 2 puff IN BID 04/29/18 04/29/18 Unknown History [Symbicort 80-4.5 Mcg Inhaler] Cholecalciferol (Vitamin D3) 1 cap PO DAILY 04/29/18 04/29/18 Unknown History [Vitamin D3] Dextran 70/Hypromellose 1 drop BOTH EYES 4X04/29/18 04/29/18 Unknown History [Artificial Tears] Icosapent Ethyl [Vascepa] 2 cap PO BID 04/29/18 04/29/18 Unknown History Lubiprostone [Amitiza] 1 cap PO BID 04/29/18 04/29/18 Unknown History Clonazepam [Klonopin] 1 mg PO QHS #0 05/03/18 04/29/18 03/16/18 21:00 Rx Acetaminophen [Tylenol] 650 mg PO Q6H PRN PRN tablet 11/22/18 Unknown Rx Diltiazem [Cardizem] 30 mg PO Q6H 30 Days #120 tab 11/22/18 Unknown Rx Furosemide [Lasix] 40 mg PO DAILY 30 Days #30 tab 11/22/18 Unknown Rx - History of Present Illness-Resp Nature of Presenting Problem: shortness of breath hx chf hx afib hx pacer mental retardation here yesterday Quality of Pain: reports: none Severity in ED: reports: moderate Onset/Duration: reports: unsure Timing: reports: still present Cough Quality/Degree: reports: no cough Episode Frequency: occasional episodes Modifying Factors: improves with: lying down Associated Symptoms: reports: short of breath Similar Symptoms Previously?: Yes Recently seen or treated by another doctor?: No Review of Systems - Adult - REVIEW OF SYSTEMS - ADULT Constitutional: reports: no symptoms reported Eyes: reports: no symptoms reported Ears, Nose, Mouth & Throat: reports: no symptoms reported Cardiovascular: reports: edema, irregular heart rate Respiratory: reports: shortness of breath Gastrointestinal: reports: no symptoms reported Genitourinary: reports: no symptoms reported Musculoskeletal: reports: no symptoms reported Integumentary: reports: no symptoms reported Neurological: reports: no symptoms reported Psychiatric: reports: no symptoms reported Endocrine: reports: no symptoms reported Hematologic/Lymphatic: reports: no symptoms reported Allergic/Immunologic: reports: no symptoms reported Past History - Adult - PAST MEDICAL HISTORY-ADULT Review of Records: reports: Old Records Reviewed, Nursing Assessment Review, Medications Reviewed, Social history reviewed & non-contributory. Major Childhood Illnesses: reports: other (MR) Cardiovascular: reports: cardiac disease, A-Fib, CHF, HTN, hyperlipidemia, pacemaker Respiratory: reports: asthma, COPD Gastrointestinal: reports: denies history Obstetrical/Gynecological: reports: denies history Genitourinary: reports: kidney disease Musculoskeletal: reports: denies history Neurological: reports: cognitive dysfunction (MR), Seizures/Epilepsy Psychiatric: reports: anxiety, bipolar Endocrine/Immune: reports: thyroid disorder Other Conditions: reports: denies history - PRIOR SURGERIES/PROCEDURES Surgical/Procedure History: reports: pacemaker, hernia repair, other (partial kidney) - IMMUNIZATION STATUS Childhood Immunizations: See Nurse Assessment Flu Vaccine: See Nurse Assessment - FAMILY HISTORY Family History: reviewed, not pertinent Physical Exam-General - PHYSICAL EXAM-ADULT Initial Vital Signs Reviewed: Yes - CONSTITUTIONAL General Appearance: mild distress - EYES Eyes: PERRL/EOMI - HEAD, EARS, NOSE, MOUTH & THROAT HENMT: normocephalic/atraumatic, moist mucous membranes - NECK Neck: full range of motion, supple - RESPIRATORY Respiratory: decreased breath sounds, rhonchi - CARDIOVASCULAR Cardiovascular: irregularly irregular - GASTROINTESTINAL (ABDOMEN) Abdominal Exam: soft - LYMPHATIC Lymphatic: no adenopathy - MUSCULOSKELETAL Back Exam: normal inspection, no CVA tenderness Extremity: no pedal edema, swelling - SKIN Integumentary: normal color, normal turgor - NEUROLOGIC Neurologic: grossly normal - PSYCHIATRIC Psych/Mental Status: oriented x 3 - HEART Score HEART Score: History: Slightly Suspicious HEART Score: ECG: Non-Specific Repolarization Disturbance/LBBB/PM HEART Score: Age: 45-65 Years HEART Score: Risk Factors for Atherosclerotic Disease: > or = 3 Risk Factors or History of Atherosclerotic Disease HEART Score: Troponin: 1-3x Normal Limit Total HEART Score:: 5 Progress - PLAN OF CARE/RESULTS Progress/Plan/Lab Results: Vital Signs - 8 hr 01/30/19 07:01 01/30/19 07:57 Pulse Rate 113 H 112 H Respiratory Rate 26 H 22 Blood Pressure 105/82 109/95 O2 Sat by Pulse Oximetry 99 95 Laboratory Results - last 24 hr 01/30/19 01/30/19 01/30/19 07:00 07:00 07:00 WBC 9.68 RBC 3.91 L Hgb 11.5 L Hct 36.3 L MCV 92.8 MCH 29.4 MCHC 31.7 L RDW Std Deviation 15.2 H Plt Count 151 MPV 11.2 H Immature Gran % (Auto) 0.2 Neut % (Auto) 79.5 H Lymph % (Auto) 8.1 L Mower % (Auto) 11.8 H Eos % (Auto) 0.3 Baso % (Auto) 0.1 Immature Gran # (Auto) 0.02 Neut # (Auto) 7.70 H Lymph # (Auto) 0.78 L Mower # (Auto) 1.14 H Eos # (Auto) 0.03 Baso # (Auto) 0.01 PT INR PTT (Actin FS) Sodium 139 Potassium 4.8 Chloride 97 L Carbon Dioxide 33 Anion Gap 8 BUN 25 H Creatinine 1.4 H Estimated GFR/1.73 m2 52 BUN/Creatinine Ratio 18 Glucose 114 H Calculated Osmolality 283 Calcium 9.0 Total Bilirubin 0.30 AST 9 L ALT 5 L Alkaline Phosphatase 58 Creatine Kinase 21 L Troponin T Bsb-Z-Awynclhcaps Pept 3415 H Total Protein 6.2 L Albumin 3.2 L Globulin 3.0 Albumin/Globulin Ratio 1.0 01/30/19 01/30/19 07:00 07:00 WBC RBC Hgb Hct MCV MCH MCHC RDW Std Deviation Plt Count MPV Immature Gran % (Auto) Neut % (Auto) Lymph % (Auto) Mower % (Auto) Eos % (Auto) Baso % (Auto) Immature Gran # (Auto) Neut # (Auto) Lymph # (Auto) Mower # (Auto) Eos # (Auto) Baso # (Auto) PT 17.8 H INR 1.39 PTT (Actin FS) 47.3 H Sodium Potassium Chloride Carbon Dioxide Anion Gap BUN Creatinine Estimated GFR/1.73 m2 BUN/Creatinine Ratio Glucose Calculated Osmolality Calcium Total Bilirubin AST ALT Alkaline Phosphatase Creatine Kinase Troponin T 0.016 Fas-M-Opkxfvzpyof Pept Total Protein Albumin Globulin Albumin/Globulin Ratio Orders Category Date Time Status Cardiac Monitoring DIRECTED Care 01/30/19 07:05 Active Oxygen Therapy- ED Nursing DIRECTED Care 01/30/19 07:05 Active Saline Loc NOW Care 01/30/19 07:05 Active CHEST-PORTABLE [RAD] Stat Exams 01/30/19 07:06 Completed ABG [RESP] Routine Lab 01/30/19 07:06 Ordered CBC WITH ELECTRONIC DIFF [HEME] Stat Lab 01/30/19 07:00 Completed CK PROFILE [SP CHEM] Stat Lab 01/30/19 07:00 Completed COMPREHENSIVE METABOLIC PANEL [CHEM] Stat Lab 01/30/19 07:00 Completed PRO B-NATRIURETIC PEPTIDE Stat Lab 01/30/19 07:00 Completed PROTIME WITH INR [COAG] Stat Lab 01/30/19 07:00 Completed PTT [COAG] Stat Lab 01/30/19 07:00 Completed TROPONIN T Stat Lab 01/30/19 07:00 Completed Apixaban [Eliquis] Med 01/30/19 07:47 Discontinued 5 mg PO NOW ONE Aspirin Med 01/30/19 06:54 Discontinued 325 mg .ROUTE .STK-MED ONE Aspirin Med 01/30/19 07:05 Discontinued 325 mg PO NOW ONE Metoprolol [Lopressor] Med 01/30/19 07:47 Discontinued 50 mg PO NOW ONE CP/SOB/Palp >45 yrs of Age Stat Oth 01/30/19 07:05 Ordered EKG [EKG] Stat Ther 01/30/19 07:05 Ordered Transfer/Admit Order [TRANSFER] Routine Transfer 01/30/19 08:51 Ordered Result Diagrams: 01/30/19 07:00 01/30/19 07:00 - EKG 1 Time of EKG reading by physician:: 07:00 EKG Read and Signed by:: Fredy Yuosif EKG Interpretation (*Must complete 3 of following elements*): Abnormal Rate: 120 Rhythm: st [place]: normal QRS: NSIVCD ST Wave: normal Prior EKG Comparison: unchanged from prior - XRAY 1 XRAY Study: Chest Impression: Abnormal (chf) Departure - Departure Date of Disposition Decision: 01/30/19 Time of Disposition Decision: 09:10 DIAGNOSIS: Acute exacerbation of CHF (congestive heart failure), Chronic atrial fibrillation with RVR, Atrial fibrillation Disposition: ADMITTED INPATIENT 09 Certified Medical Emergency: Emergent Condition: Stable Referrals and Follow-Ups: None,PCP [Primary Care Provider] - - Critical Care Note This patient required my direct & personal management of CC.: No Attestation - Physician/ LUCIANA Attestation Patient care was provided by Advanced Practice Provider:: No The physician spent face to face time with patient:: Yes Advanced Practice Provider documentation review:: Supervising physician onsite and consulted in the evaluation and care of this patient. The physician did have a face to face encounter with the patient.
[2019-01-30 09:19] LABS: ALLEN TEST YES; MODALITY CANNULA; PCO2(98.6) 65 mmHg (35-45)
--- NOTE | 2019-01-30 09:46 | EKG Report ---
Test Performed on : 01/30/2019 06:59:03 AM Test Reason : CP Blood Pressure : / mmHG Vent. Rate : 120 BPM Atrial Rate : 061 BPM P-R Int : 000 ms QRS Dur : 174 ms QT Int : 382 ms P-R-T Axes : 000 -83 092 degrees QTc Int : 539 ms Ventricular-paced rhythm Abnormal ECG No previous ECGs available Unconfirmed Result
--- NOTE | 2019-01-30 09:46 | EKG Report ---
Test Performed on : 01/30/2019 09:25:53 AM Test Reason : repeat Blood Pressure : / mmHG Vent. Rate : 112 BPM Atrial Rate : 056 BPM P-R Int : 000 ms QRS Dur : 180 ms QT Int : 384 ms P-R-T Axes : 000 -86 096 degrees QTc Int : 524 ms Atrial fibrillation. with rapid ventricular response. Left axis deviation Right bundle branch block Inferior infarct , age undetermined Anteroseptal infarct , age undetermined Abnormal ECG When compared with ECG of 21-NOV-2018 07:27, Atrial fibrillation. has replaced Electronic ventricular pacemaker Vent. rate has increased BY 38 BPM Unconfirmed Result
[2019-01-30] MEDS ORDERED: CORDARONE 360 MG/D5W 360 MG/200 ML IV.SOLN IV ONE (10:48)
[2019-01-30] MEDS ORDERED: TYLENOL PO PRN (10:52)
[2019-01-30] MEDS ORDERED: ZOFRAN IV PRN (10:52)
[2019-01-30] MEDS ORDERED: CARDIZEM 125/NS 125 MG/125 ML IVPB IV SCH (11:00)
--- NOTE | 2019-01-30 11:28 | Diag Imaging Result Doc PS360 ---
EXAM: ABDOMEN FLAT/UPRIGHT HISTORY: abd distention TECHNIQUE: Two views COMPARISON: None. FINDINGS: There is gaseous distention of the hepatic flexure to 12 cm. Tube decompression could be considered. There is moderate constipation. No small bowel distention is appreciated. No free air beneath hemidiaphragm. There is elevation the right hemidiaphragm. There is a ring calcification within the left upper quadrant shown to represent a renal lesion on previous CT 03/11/2018. IMPRESSION: 1.Distended hepatic flexure to 12 cm. Consider tube decompression. 2.Constipation. Electronically signed by Michela Sanchez 01/30/2019 11:26 AM
[2019-01-30 12:02] LABS: FREE T4 0.87 ng/dL (0.93-1.70); TSH 0.02 uIUmL (0.27-4.20)
[2019-01-30] MEDS: LASIX IV SCH ×2 (12:37→21:36)
--- NOTE | 2019-01-30 13:05 | HISTORY AND PHYSICAL ---
PRIMARY CARE PROVIDER: No primary care provider. CHIEF COMPLAINT: Shortness of breath. HISTORY OF PRESENT ILLNESS: Mr. Kana De Leon is a 58-year-old male with a medical history of autism, bipolar, anxiety disorder and intellectual disability from [facility]. Apparently, he presented to the emergency department at [facility] on 01/29/2019, which was yesterday. On that day he was seen and was discharged. He actually had a low O2 saturation of 86% at that time. The patient's oxygen concentrator had twisted because apparently he is on continuous 2 liters of oxygen. So, he was discharged as he had improvement in his oxygenation. Today, he represents because of shortness of breath which was progressive overnight. He was found to have an elevated proBNP. His COPD was stable. His oxygen levels were also stable. He is having issues where his atrial fibrillation was in rapid ventricular response, but the pacer was pacing with the rate. Apparently, he has a pacemaker by the [employer] that he had placed in May,. Their closest people that can interrogate it are 2 states away, essentially from [place]. So, with the shortness of breath and significant lower extremity edema even though that is chronic, we are going to admit him, consult cardiology. We will do echocardiogram. We will get lower extremity Doppler and will attempt rate control of his atrial fibrillation with RVR. We will also start him on Lasix IV. He will have to be in the ICU for the Cardizem drip for rate control. He is in no distress at all. PAST MEDICAL HISTORY: 1. Atrial fibrillation. 2. Chronic lower extremity edema. 3. Congestive heart failure with mitral regurgitation. 4. COPD and asthma on continuous 2 liters nasal cannula. 5. Arthritis in legs, ankles and feet. 6. Seizure disorder. 7. Peptic ulcer disease. 8. GERD. 9. Metabolic syndrome, denies diabetes. 10.Hypertension. 11.Thrombocytopenia. 12.Hypothyroidism. 13.Left ear hard of hearing. 14.BPH. 15.CKD Stage 3. 16.Severe gingivitis. 17.Autism. 18.Bipolar. 19.Anxiety. 20.Intellectual disability. 21.In 2012 got pacemaker due to cardiac arrest and was found to have high-grade AV block. 22.Chronic anemia. PAST SURGICAL HISTORY: 1. June 10, 2013, [employer] dual-chamber permanent pacemaker placement. 2. December,, had to have it repositioned on the right ventricle. He has even had an additional right ventricular lead placement in [place]. Last obvious pacemaker check with no evidence of malfunction was back in September,; but I think he is supposed to have it checked yearly. Normally, he is pacemaker-dependent. Contact information for [employer] is [phone]. Model No. [id number]. Serial No. [id number] out of [place], [place]. I believe the closest people that can check it are in [place], but it is noted that there is an interrogation system that is located in [facility]. 3. Right partial nephrectomy in 1969. 4. Abdominal incisional hernia repair. 5. Cataracts. 6. Bilateral renal cysts. 7. Adenoidectomy. SOCIAL HISTORY: No tobacco, alcohol or illicit drug use. He uses a walker at home. He lives at the [facility] ([facility] Apparently, the father does keep in touch with him. He is usually able to feed himself. FAMILY HISTORY: Unknown. ALLERGIES: Sulfacetamide, IV and oral iodine contrast and NSAID. HOME MEDICATIONS: Have not been verified. They are not confirmed yet. The order has been placed for home med verification. It is presumed that he is on Depakote, Singulair, Zocor, Amitiza, aspirin, multivitamin, docusate, Eliquis 5 twice a day, finasteride, Flomax, furosemide, MiraLAX, omeprazole, Azelastine, Seroquel, budesonide, Formoterol, Synthroid, Vascepa, Vitamin D3, Zyloprim or allopurinol, clonazepam, diltiazem, albuterol, Atrovent, metoprolol 100 twice a day and Tylenol. REVIEW OF SYSTEMS: Difficult to obtain. He states he is short of breath. He nods yes and answers yes, no to pain, but otherwise unable to get anymore information out of him than that. PHYSICAL EXAMINATION: VITAL SIGNS: Temperature 97.9, heart rate 125, respiratory rate 18, blood pressure 121/86, O2 saturation 100% on 3 liters. GENERAL: Mr. Kana De Leon is a 58-year-old autistic male. He in no acute distress. He is unable to answer questions due to his intellectual disability. HEENT: Atraumatic and normocephalic. Pupils equal and reactive. Extraocular movements are intact. Mucous membranes are moist. NECK: Trachea is midline. CARDIOVASCULAR: Irregularly irregular tachycardic rate and rhythm. No rubs, gallops or murmurs. Unable to assess for JVD due to body habitus. Neck very short and thick. He has 3-4+ lower extremity edema without weeping. +1 dorsalis and pedal pulses. +2 radial pulses. Negative for carotid bruits. PULMONARY: Clear to auscultation, bilateral breath sounds. No accessory muscle use or work of breathing noted. GI: Soft, nontender. Positive bowel sounds x 4. EXTREMITIES: Decreased range of motion and strength in all extremities. NEUROLOGICAL: Again, there is intellectual disability. He will nod and say yes or no to occasional questions, but he is not consistent. He will follow some commands. SKIN: Warm, dry and intact. LABORATORY DATA: WBC 9000, hemoglobin 11, hematocrit 36, platelet count 151,000, INR 1.39, PTT 47.3. ABGs on 2 liters nasal cannula pH 7.37, pCO2 65, pO2 68, bicarb 9.2, oxyhemoglobin 91%, lactate 0.8, sodium 139, potassium 4.8, BUN 25, creatinine 1.4, glucose 114, calcium 9.0, bilirubin 0.30, AST 9, ALT 5, CK 22, troponin 0.017, negative x 2, proBNP 3415, albumin 3.2. IMAGING: Chest x-ray with increasing pulmonary opacity and effusion, particularly involving the right lung. Distended colon also causing right hemidiaphragm. EKG at 07:05 ventricularly paced atrially sensed rhythm, rate 120 and irregular. EKG at 09:22 atrial fibrillation with RVR, still ventricularly paced rhythm, rate 112. ASSESSMENT AND PLAN: 1. Acute on chronic congestive heart failure likely appears to be diastolic, could be systolic also. He has shortness of breath and chronic lower extremity edema and is felt to be exacerbated due to the increased heart rate with his atrial fibrillation. He last echocardiogram was performed in Feb, 2018. Ejection fraction at that time was 55-60% with apicoseptal dyssynchrony due to the presence of a pacemaker. At that time was reported as no valvular abnormalities although there is a report of mitral regurgitation in the past, but this one says no significant regurgitation of the mitral valve. So, we are getting a repeat echocardiogram, consulting cardiology and start him on IV Lasix. His beta juan he got a one- time dose this morning due to the atrial fibrillation with RVR. He got 50 mg instead of his usual 100 mg that he takes twice a day. 2. Atrial fibrillation with RVR. Will make sure electrolytes are normalized. He has a history of being on Eliquis, but the pacemaker seems to be pacing just as fast as the heart goes and even up to the 120s and is a ventricularly paced rhythm as well. So, we will start him on a Cardizem drip and transfer him to the ICU and try to improve rate control for him. Hopefully, this will help not exacerbate the CHF so bad. 3. CKD Stage 3. Will need to monitor closely. He is at baseline right now. He does have a history of having a right partial nephrectomy in 1969. Currently, he is on Lasix. 4. Chronic lower extremity edema noted. 5. COPD. No exacerbation. Elevated C02 but pH is normal. Will continue his home dosing of oxygen at 2 liters. Will do Xopenex nebs instead of albuterol, given the heart rate. Will do budesonide. 6. Seizures. Will continue his medications once they are verified. 7. GERD and peptic ulcer disease. Again, will continue PPI once it is verified. 8. Hypertension. Blood pressure is stable at this moment; but once his heart rate is better controlled, he may become a little more hypertensive. Will resume meds for that. 9. Reported metabolic syndrome, diet controlled. Will get a hemoglobin A1C in the morning. Blood glucose right now is 114. 10.Reported thrombocytopenia. Platelet count is normal at this time at 151. It looks like he has been stable with his platelet count since Feb, 2018. He only occasionally has low spells. 11.Hypothyroidism. Waiting for that to be verified. Will resume meds. Will also get TSH and T4. Will probably add that to the morning labs. 12.BPH. Continue home meds. 13.Autism, bipolar, anxiety disorder with intellectual disability. Will resume anything that he takes for that as well once they are verified. 14.Questionable pacemaker malfunction as is pacing just as fast as his heart rate is going. The closest place that can interrogate this is at [facility] which has a machine. Otherwise, they do not have people any closer than 2 states away which I believe is in [place]. So, hopefully, we can get rate controlled and get his heart failure under control and he can follow up as an outpatient with Dr. Lopez and get his pacemaker interrogated at [facility]. 15.DVT prophylaxis. He is on Levaquin but with the lower extremity edema we are also going to get ultrasound of the lower extremities. Dictated by MELISSA Kapoor for Silvano Denny MD cc: MELISSA Kapoor MD
[2019-01-30] MEDS: ATROVENT NEB INH SCH ×2 (15:16→21:07)
[2019-01-30] MEDS: XOPENEX NEB INH SCH ×2 (15:16→21:07)
[2019-01-30 16:24] LABS: BILIRUBIN URINE NEGATIVE (NEGATIVE); BLOOD URINE NEGATIVE (NEGATIVE); CLARITY CLEAR (CLEAR); COLOR YELLOW; GLUCOSE URINE NEGATIVE (NEGATIVE); KETONE URINE NEGATIVE (NEGATIVE); LEUKOCYTES URINE NEGATIVE (NEGATIVE); NITRITE URINE NEGATIVE (NEGATIVE); PH URINE 6.5; PROTEIN URINE NEGATIVE (NEGATIVE); SP GRAVITY URINE 1.005; UROBILINOGEN URINE NORMAL
[2019-01-30 16:29] LABS: URINE SOURCE CATH
[2019-01-30 16:30] LABS: URINE BACTERIA NEGATIVE /HFP; URINE CAST NONE SEEN /LPF; URINE CRYSTAL NONE SEEN /HPF; URINE EPITHELIAL CELLS <10 /HPF (<10); URINE RBC <10 /HPF (<10); URINE WBC <10 /HPF (<10); URINE YEAST NONE SEEN /HPF
[2019-01-30] MEDS ORDERED: CORDARONE 540 MG in D5W 289.2 ML IV ONE (16:48)
[2019-01-30] MEDS: LOPRESSOR PO SCH (18:03)
[2019-01-30] MEDS: TEARISOL OPH SOLUTION BOTH EYES SCH ×2 (18:03→21:39)
[2019-01-30] MEDS: SEROQUEL PO SCH ×2 (18:04→21:41)
--- NOTE | 2019-01-30 18:10 | Extremity Venous Study ---
EXAM: Venous U/S Bilateral Legs 01/30/2019 HISTORY: LE edema TECHNIQUE: Compression venous ultrasound of the lower extremities with color Doppler flow COMMENT: The deep veins of the lower extremities are compressible. There is no evidence of thrombus in the great saphenous vein. There is color Doppler flow with augmentation. IMPRESSION: No evidence of deep venous thrombosis. Electronically signed by Pito Miller 01/30/2019 6:08 PM
--- NOTE | 2019-01-30 19:05 | HISTORY AND PHYSICAL ---
ADDENDUM: This is a 58-year-old male with atrial fibrillation and CHF who comes in with worsening shortness of breath and hypoxia. He is a alf patient. He has known CHF. He has atrial fibrillation status post pacemaker. He has been having some RVR issues. Heart rate has been 120s to 150s paced but paced at the 150s. In any case he came in for evaluation. He was found to be in atrial fibrillation with aberrant conduction or a completely paced rhythm but EF was intact but he did have CHF findings, elevated proBNP, pleural effusions, pulmonary edema. His exam shows pitting edema and rales at the bases. We will admit him for evaluation by Cardiology. We have initiated Cardizem, we have initiated Lasix. He is already on Eliquis. He is already on beta blockers. His EF is intact so I think Cardizem is reasonable to use. Will repeat his echocardiogram and see if there is anything from that point and we have consulted Cardiology. This is a [id number] encounter note with Ludy Brandon. 32 minute critical care time for atrial fibrillation with rapid ventricular response and requiring IV Cardizem. cc: Silvano Denny MD MTDD
[2019-01-30] MEDS ORDERED: AMITIZA PO SCH (21:00)
--- NOTE | 2019-01-30 21:01 | CONSULTATION ---
DATE OF CONSULTATION: 01/30/2019 IMPRESSION: 1. Paroxysmal atrial arrhythmias including atrial fibrillation as well as paroxysms of atrial flutter. He is having some mild pacemaker mediated tachycardia when he is in atrial flutter. This is not new and was first noted about a year ago. 2. Status post permanent dual-chamber pacemaker for high-grade atrioventricular block and associated syncope. 3. Acute on chronic congestive heart failure with preserved left ventricular ejection fraction. 4. Asthma. 5. Seizure disorder. 6. Autism and intellectual delay/disability. RECOMMENDATIONS: 1. Continue long-term anticoagulation with Eliquis. 2. Continue beta juan. 3. Patient's pacemaker device is a [employer] device and nearest b2b sales representative for the company is in [place], [place]. There does not appear to be any urgency to reprogram pacemaker but consideration might be given to decreasing maximum ventricular pacing rate to lessen the tendency for tachycardia when his pacemaker tracks atrial flutter. 4. Is probably best not to add antiarrhythmic therapy to suppress atrial arrhythmias or atrial flutter given his already lengthy list of medications and the potential for significant drug interactions. 5. Conservative cardiovascular management overall. HISTORY: This 58-year-old white male with history of autism, intellectual delay/disability, atrial arrhythmias and high-grade AV block requiring permanent pacemaker was brought from the [facility] as he apparently been showing some lethargy and increased respiratory rate. He has been on chronic oxygen related to his COPD/asthma. In the emergency room his oxygen levels were stable. However his B type natriuretic peptide level was elevated. While monitored on telemetry he was noted to demonstrate episodes of tachycardia up to 120 beats per minute which appeared to be ventricular paced. In reviewing his record he has demonstrated sinus rhythm with paroxysms of atrial fibrillation as well as paroxysms of atrial flutter. With the latter he may often demonstrate associated pacemaker mediated tachycardia. This was noted as for back as a year ago. He has a [employer] pacemaker device placed in 2012 for high-grade AV block. Has a dual-chamber device and has not been checked in some time. The patient does not seem to report any palpitations. He reports feeling comfortable and denies pain. PAST MEDICAL HISTORY: 1. Paroxysmal atrial arrhythmias including atrial fibrillation and atrial flutter. 2. Congestive heart failure with preserved left ventricular ejection fraction. Echocardiography performed today demonstrates normal left ventricular ejection fraction and very mild mitral regurgitation. 3. COPD/asthma. He is on continuous oxygen. 4. Seizure disorder. 5. Autism and intellectual developmental delay/disability. 6. Peptic ulcer disease. 7. Hypertension. 8. Chronic kidney disease. 9. Chronic anemia. PAST SURGICAL HISTORY: 1. Includes dual-chamber permanent pacemaker placed in 2013 with a [employer] device. He had pacemaker lead malfunction and has had lead revision. He is also status post right partial nephrectomy in 1970, abdominal incision hernia repair, cataract removal and adenoidectomy. 2. He has been shown to have bilateral renal artery. ALLERGIES: He is allergic or intolerant to sulfacetamide and nonsteroidal anti-inflammatories as well as iodinated contrast. SOCIAL HISTORY: He resides at the [facility]. His father does keep in touch with him. The patient actually can do a fair amount and staff relates that he can read and write and he remembers quite a great deal. Enjoys watching television and gravitates toward watching Dr. Brooks and game shows. He does not ambulate very much and oftentimes may use a walker. He does not smoke nor use alcohol. FAMILY HISTORY: Noncontributory. REVIEW OF SYSTEMS: Difficult to obtain. He presently denies shortness of breath or pain. He reports feeling "pretty well." PHYSICAL EXAMINATION: Reveals a middle-aged male in no distress on supplemental oxygen. Blood pressure 93/32, heart rate 70 and regular with ECG monitor presently showing atrial fibrillation with ventricular paced rhythm. There is no significant jugular venous distention.Chest: Clear to auscultation. There are no wheezes. Cardiac: Reveals a regular rate and rhythm without appreciable murmur or gallop. Abdomen: Mildly distended and somewhat tympanitic. Bowel sounds are audible. There is no abdominal tenderness. Extremities: Without edema. There are chronic venous stasis changes bilaterally. Neurologic: Reveals him to be awake and quite responsive. His speech is somewhat difficult to understand but staff from [facility] understands him quite readily. He seems to respond appropriately to questions. He moves all 4 extremities equally well. DATA: A 12-lead EKG obtained this morning is reviewed and demonstrates sinus rhythm with atrial sensed ventricular paced rhythm with episodes of wide complex tachycardia to around 120 beats per minute which appeared to be ventricular paced. I suspect this is likely atrial flutter with atrial sensed ventricular paced rhythm and associated tachycardia. Present ECG monitor shows what appears to be atrial fibrillation with ventricular paced rhythm at around 60 to 70 beats per minute. LABORATORY DATA: Includes white blood cell count 9.68, hematocrit 36.3, hemoglobin 11.5, platelet count 151,000. Pro time 17.8, INR 1.39, PTT 47.3, pH 7.37, pCO2 65, PO2 68 on nasal cannula oxygen at 2 L/minute. Sodium 139, potassium 4.8, chloride 97, carbon dioxide 33, BUN 25, creatinine 1.4, glucose 114. Troponin T 0.017, pro B-natriuretic peptide level 3415, albumin 3.2. TSH 0.02, free T4 0.87. cc: Ben Mantilla MD [facility]
[2019-01-30] MEDS: PULMICORT INH SCH (21:06)
[2019-01-30] MEDS: ICOSAPENT ETHYL PO SCH (21:39)
[2019-01-30] MEDS: MIRALAX PO SCH (21:39)
[2019-01-30] MEDS: DEPAKOTE ER PO SCH (21:41)
[2019-01-30] MEDS: SINGULAIR PO SCH (21:41)
[2019-01-30] MEDS: ELIQUIS PO SCH (21:41)
[2019-01-30] MEDS: KLONOPIN PO SCH (21:42)
[2019-01-30] MEDS: PROSCAR PO SCH (21:42)
[2019-01-30] MEDS: ZOCOR PO SCH (21:42)
[2019-01-31] MEDS: ATROVENT NEB INH SCH ×4 (04:24→22:40)
[2019-01-31] MEDS: XOPENEX NEB INH SCH ×2 (04:24→09:20)
[2019-01-31] MEDS ORDERED: SYNTHROID PO SCH ×2 (06:00)
[2019-01-31] MEDS: PRILOSEC PO SCH (06:07)
[2019-01-31 07:55] LABS: INR 1.35; PROTIME 17.4 Seconds (11.0-16.0)
[2019-01-31 07:56] LABS: EOS# 0.05 X1000 (0.0-0.7); EOS% 0.6 % (0.0-10.0); HEMATOCRIT 35.2 % (42.0-52.0); HEMOGLOBIN 11.1 g/dL (14.0-18.0); IMM GRAN# 0.02 X1000 (0.0-0.04); IMM GRAN% 0.3 % (0.0-0.5); LYMPH# 0.89 X1000 (1.2-3.4); LYMPH% 11.4 % (20.5-51.1); MCH 29.3 PG (27-31); MCHC 31.5 g/dL (33-37); MCV 92.9 FL (81-99); MONO# 0.78 X1000 (0.11-0.59); MPV 11.8 FL (7.4-10.4); NEUT# 6.08 X1000 (1.4-6.5); NEUT% 77.7 % (42.2-75.2); PLT 162 X1000 (130-400); PTT 50.7 Seconds (22.3-41.8); RBC 3.79 XMIL (4.7-6.1); RDW 15.2 % (11.5-14.5); WBC 7.82 X1000 (4.8-10.8)
[2019-01-31 08:25] LABS: ALBUMIN 2.9 g/dL (3.5-5.0); CALCIUM 8.5 mg/dL (8.8-10.2); CREATININE 1.4 mg/dL (0.7-1.2); MAGNESIUM 1.7 mg/dL (1.5-2.7); POTASSIUM 4.8 mmol/L (3.5-5.1); TOTAL BILIRUBIN 0.3 mg/dL (0.20-1.00); TOTAL PROTEIN 5.4 g/dL (6.3-8.3)
[2019-01-31 08:32] LABS: HEMOGLOBIN A1C 4.9 % (4.8-6.0)
[2019-01-31] MEDS: PULMICORT INH SCH (09:20)
[2019-01-31] MEDS: TEARISOL OPH SOLUTION BOTH EYES SCH ×4 (10:18→20:51)
[2019-01-31] MEDS: LASIX IV SCH ×2 (10:18→20:45)
[2019-01-31] MEDS: ZYLOPRIM PO SCH (10:19)
[2019-01-31] MEDS: ELIQUIS PO SCH ×2 (10:19→20:45)
[2019-01-31] MEDS: FLOMAX PO SCH (10:19)
[2019-01-31] MEDS: THERA M PLUS PO SCH (10:19)
[2019-01-31] MEDS: LOPRESSOR PO SCH ×2 (10:20→20:45)
[2019-01-31] MEDS: MIRALAX PO SCH ×2 (10:20→20:44)
[2019-01-31] MEDS: AMITIZA PO SCH ×2 (10:20→17:05)
[2019-01-31] MEDS: ICOSAPENT ETHYL PO SCH ×2 (10:21→20:49)
[2019-01-31] MEDS: PATIENT'S OWN MED BOTH EYES SCH ×2 (10:23→20:50)
[2019-01-31] MEDS: SEROQUEL PO SCH ×3 (10:36→20:45)
[2019-01-31] MEDS ORDERED: LOPRESSOR PO ONE (13:15)
--- NOTE | 2019-01-31 13:29 | ECHO REPORT ---
ORDER DATE: 01/30/2019 INTERPRETING PHYSICIAN: Dr. Noonan REQUESTING PHYSICIAN: Silvano Denny MD. CLINICAL INDICATIONS: Pneumonia, dyspnea. M-MODE MEASUREMENTS: Left ventricle end diastole: 4.4 cm. Left ventricle end systole: 3.0 cm. Posterior wall: 1.1 cm. Interventricular septum: 1.1 cm. Left atrium: 3.6 cm. Aortic root: 2.6 cm. SUMMARY OF 2-DIMENSIONAL IMAGIN. The study is difficult. Optison was added to optimize visualization of endocardium. 2. There is paradoxical contractility of the interventricular septum and the apical septal segment of the left ventricle due to pacemaker activity. 3. The right ventricle appears to appears to be mildly enlarged. 4. The left ventricle shows mild decreased function, ejection fraction in the range of 50% to 54%. 5. The pulmonic valve is normal. Color flow mapping indicates mild degree regurgitation. 6. The tricuspid valve shows [id number] degree of regurgitation. 7. The inferior vena cava was not well visualized. 8. Pulmonary pressure is estimated at 51-56 mmHg. 9. The aortic valve appears to be grossly normal. Color flow mapping unremarkable. 10.The mitral valve also appears to be grossly normal. Color flow mapping indicates mild degree of regurgitation. 11.Pulse wave Doppler of mitral inflow shows "normal" E/A ratio. 12.Tissue Doppler of septal and lateral mitral annulus averages 8 cm. 13.There is no diastolic dysfunction. 14.There is no pericardial effusion, no mass, and no thrombus. SUMMARY: 1. The study was difficult. Definity was added to optimize visualization of endocardium. Ejection fraction 50% to 54% with wall motion abnormality related to the presence of pacemaker activity. 2. No diastolic dysfunction. 3. Pulmonary pressure of 51-56 mmHg. 4. The patient was tachycardic during the study. Clinical correlation is recommended. cc: MD Ludy Rosales CRNP
--- NOTE | 2019-01-31 14:44 | PROGRESS NOTE ---
DATE: 01/31/2019 SUBJECTIVE: Patient has no focal complaints. OBJECTIVE: Blood pressure is 122/71, heart rate of 108, respiratory rate of 22, temperature 98 degrees, saturations 94% on 3 L.Cardiovascular: Regular rate and rhythm. Pulmonary: Bilateral breath sounds diminished at the bases. Rales. GI: Soft, nontender, nondistended. Bowel sounds are positive. PROBLEM LIST: 1. Acute diastolic heart failure is stable. We will continue diuretics and follow. He is doing very well. Ejection fraction is above 50%. Appreciate Cardiology input. 2. Paced tachycardia which is wide complex. It is not felt to be atrial fibrillation. We cannot interrogate the pacemaker because of its brand type and there is no local pace interrogation. Apparently, it is at a rate of 150 or that is it is max. Cardiology recommends pushing Lopressor dose. No additional other agents because of concern over drug interaction. Clinically seems to be doing okay. He usually does not get faster than the 120s or 130s with exertion. He is in the 100s so I am going to increase his Lopressor to 100 q.12. 3. Chronic renal failure is stable despite diuretics. 4. Chronic obstructive pulmonary disease appears to be stable on current medications. 5. Seizure disorder. We are going to continue to monitor closely. 6. Severe bipolar, autism, intellectual disability. He is at baseline. 7. Disposition. I think he is probably okay to go to the floor, may be able to be transitioned home in the next 1 to 2 days. I will get a chest x-ray tomorrow and see how he does. 8. Hypothyroidism. He is on low-dose Synthroid or we have adjusted his Synthroid dose. He is on 175 daily but his current dosing is 0.79 which is a little bit under, I am not sure if we may not need to do just a full 200, Disposition pending clinical status but again probably home in the next 1 to 2 days. cc: MD MICKEY Freeman
[2019-01-31] MEDS: XOPENEX NEB INH PRN (16:41)
[2019-01-31] MEDS: KLONOPIN PO SCH (20:44)
[2019-01-31] MEDS: SINGULAIR PO SCH (20:45)
[2019-01-31] MEDS: PROSCAR PO SCH (20:45)
[2019-01-31] MEDS: DEPAKOTE ER PO SCH (20:45)
[2019-01-31] MEDS: ZOCOR PO SCH (20:45)
[2019-02-01] MEDS: PULMICORT INH SCH ×3 (03:26→22:53)
[2019-02-01] MEDS: ATROVENT NEB INH SCH ×4 (03:47→22:53)
[2019-02-01] MEDS: SYNTHROID PO SCH (06:11)
[2019-02-01] MEDS: PRILOSEC PO SCH (06:11)
--- NOTE | 2019-02-01 08:03 | Diag Imaging Result Doc PS360 ---
EXAM: CHEST-PORTABLE 02/01/2019 HISTORY: dyspnea TECHNIQUE: AP portable at 0636 COMMENT: There are platelike atelectatic changes in the left base. There is an apparent right pleural effusion which appears larger than on 01/30/2019. IMPRESSION: Worsened bibasilar atelectasis and right pleural effusion. Electronically signed by Pito Miller 02/01/2019 8:01 AM
[2019-02-01 08:09] LABS: BASO# 0.01 X1000 (0.0-0.2); BASO% 0.1 % (0.0-0.8); EOS# 0.15 X1000 (0.0-0.7); EOS% 1.8 % (0.0-10.0); HEMATOCRIT 35.5 % (42.0-52.0); HEMOGLOBIN 11.1 g/dL (14.0-18.0); IMM GRAN# 0.03 X1000 (0.0-0.04); IMM GRAN% 0.4 % (0.0-0.5); LYMPH# 0.86 X1000 (1.2-3.4); LYMPH% 10.1 % (20.5-51.1); MCH 29.4 PG (27-31); MCHC 31.3 g/dL (33-37); MCV 94.2 FL (81-99); MONO# 0.79 X1000 (0.11-0.59); MONO% 9.2 % (1.7-9.3); MPV 11.4 FL (7.4-10.4); NEUT# 6.71 X1000 (1.4-6.5); NEUT% 78.4 % (42.2-75.2); PLT 182 X1000 (130-400); RBC 3.77 XMIL (4.7-6.1); RDW 15.1 % (11.5-14.5); WBC 8.55 X1000 (4.8-10.8)
[2019-02-01] MEDS: XOPENEX NEB INH PRN ×2 (08:30→16:08)
[2019-02-01 08:38] LABS: CALCIUM 8.5 mg/dL (8.8-10.2); CREATININE 1.3 mg/dL (0.7-1.2); POTASSIUM 5.2 mmol/L (3.5-5.1)
[2019-02-01] MEDS: TEARISOL OPH SOLUTION BOTH EYES SCH ×4 (09:53→21:05)
[2019-02-01] MEDS: AMITIZA PO SCH ×2 (09:55→16:58)
[2019-02-01] MEDS: ICOSAPENT ETHYL PO SCH ×2 (09:55→21:05)
[2019-02-01] MEDS: ELIQUIS PO SCH ×2 (09:57→21:04)
[2019-02-01] MEDS: MIRALAX PO SCH ×2 (09:57→21:06)
[2019-02-01] MEDS: COLACE PO SCH (09:57)
[2019-02-01] MEDS: SEROQUEL PO SCH ×3 (09:57→21:04)
[2019-02-01] MEDS: FLOMAX PO SCH (09:58)
[2019-02-01] MEDS: THERA M PLUS PO SCH (09:58)
[2019-02-01] MEDS: LOPRESSOR PO SCH ×2 (09:58→21:05)
[2019-02-01] MEDS: ZYLOPRIM PO SCH (09:59)
[2019-02-01] MEDS: LASIX IV SCH ×2 (09:59→21:04)
[2019-02-01] MEDS: PATIENT'S OWN MED BOTH EYES SCH ×2 (10:02→21:06)
[2019-02-01] MEDS ORDERED: KAYEXALATE PO ONE (12:08)
[2019-02-01] MEDS: LANOXIN IV SCH ×2 (15:01→21:06)
--- NOTE | 2019-02-01 17:38 | PROGRESS NOTE ---
DATE: 02/01/2019 SUBJECTIVE: Patient has no complaints. OBJECTIVE: Vital signs: Blood pressure is 110/80, heart rate 132, respiratory rate 20, temperature 99.1 degrees. Cardiovascular: Regular rate and rhythm. Pulmonary: Bilateral breath sounds. Clear to auscultation. GI: Soft, nontender, nondistended. Bowel sounds are positive. LABORATORY DATA: White count is 8, hemoglobin and hematocrit are 11 and 35, platelets 182,000. Potassium 5.2, creatinine 1.3. Chest x-ray though shows a worsening effusion on the right side, so that does not look much better. ASSESSMENT AND PLAN: 1. Acute diastolic heart failure. Infiltrate seems to be a bit worse. We will continue diuresis. He has been on IV Lasix for several days. I am going to give him a little bit more today and see how he does. 2. Atrial fibrillation or paced wide complex tachycardia. It is not stable. It is not controlled. He is still in the 120s to 130s. He is maxed out on Lopressor, which is what Cardiology initially recommended. We had started some Cardizem but they did want to add other agents. I have added some digoxin. I think Cardiology will need to re-evaluate and decide when he can go home with an acceptable heart rate. I do not think we can kind use normal guidelines. His pacemaker overdrive or pacer is all set at 150 which is unusual, but I think he stays tachycardic. Echocardiogram on him showed an EF of 50 to 54%, so he has diastolic dysfunction. 3. Chronic renal failure, stable. He is a little hyperkalemic. 4. Bipolar, autism, severe intellectual disability. He is at baseline, very pleasant. 5. Hypothyroidism. I bumped up his Synthroid to 200. 6. Disposition. Again, I think we need Cardiology to re-evaluate, make sure that heart rate is acceptable, and kind to get a sense of his medications. Disposition is pending his clinical status. He is a nursing home patient, so he has a kind of locked in schedule. He has an area to go home when he leaves. cc: Silvano Denny MD
[2019-02-01] MEDS: DEPAKOTE ER PO SCH (21:04)
[2019-02-01] MEDS: PROSCAR PO SCH (21:04)
[2019-02-01] MEDS: ZOCOR PO SCH (21:05)
[2019-02-01] MEDS: SINGULAIR PO SCH (21:05)
[2019-02-01] MEDS: KLONOPIN PO SCH (21:05)
[2019-02-02] MEDS: LANOXIN IV SCH (02:49)
[2019-02-02] MEDS: ATROVENT NEB INH SCH ×4 (05:18→21:09)
[2019-02-02] MEDS ORDERED: CARDIZEM PO SCH (06:45)
[2019-02-02 07:14] LABS: BASO# 0.01 X1000 (0.0-0.2); BASO% 0.1 % (0.0-0.8); EOS# 0.18 X1000 (0.0-0.7); EOS% 2.6 % (0.0-10.0); HEMATOCRIT 37.7 % (42.0-52.0); HEMOGLOBIN 11.5 g/dL (14.0-18.0); IMM GRAN# 0.02 X1000 (0.0-0.04); IMM GRAN% 0.3 % (0.0-0.5); LYMPH# 0.93 X1000 (1.2-3.4); LYMPH% 13.7 % (20.5-51.1); MCHC 30.5 g/dL (33-37); MONO# 0.63 X1000 (0.11-0.59); MONO% 9.3 % (1.7-9.3); MPV 11.5 FL (7.4-10.4); NEUT# 5.04 X1000 (1.4-6.5); PLT 199 X1000 (130-400); RBC 3.97 XMIL (4.7-6.1); RDW 14.7 % (11.5-14.5); WBC 6.81 X1000 (4.8-10.8)
[2019-02-02 07:42] LABS: CALCIUM 8.6 mg/dL (8.8-10.2); CREATININE 1.3 mg/dL (0.7-1.2); MAGNESIUM 1.8 mg/dL (1.5-2.7)
[2019-02-02] MEDS ORDERED: CARDIZEM PO PRN (07:58)
--- NOTE | 2019-02-02 10:08 | EKG Report ---
Test Performed on : 02/01/2019 1:57:16 PM Test Reason : Tachycardia Blood Pressure : / mmHG Vent. Rate : 117 BPM Atrial Rate : 061 BPM P-R Int : 000 ms QRS Dur : 172 ms QT Int : 384 ms P-R-T Axes : 000 269 099 degrees QTc Int : 535 ms Atrial fibrillation. with rapid ventricular response. Nonspecific intraventricular block Possible Lateral infarct (cited on or before 30-JAN-2019) Inferior infarct (cited on or before 30-JAN-2019) Abnormal ECG When compared with ECG of 30-JAN-2019 09:25, (Unconfirmed) Nonspecific intraventricular block has replaced Right bundle branch block Questionable change in initial forces of Lateral leads Unconfirmed Result
[2019-02-02] MEDS: SEROQUEL PO SCH ×3 (10:40→22:49)
[2019-02-02] MEDS: AMITIZA PO SCH ×2 (10:40→16:03)
[2019-02-02] MEDS: FLOMAX PO SCH (10:40)
[2019-02-02] MEDS: ELIQUIS PO SCH ×2 (10:40→22:47)
[2019-02-02] MEDS: PRILOSEC PO SCH (10:41)
[2019-02-02] MEDS: THERA M PLUS PO SCH (10:41)
[2019-02-02] MEDS: SYNTHROID PO SCH (10:41)
[2019-02-02] MEDS: LOPRESSOR PO SCH ×2 (10:41→22:46)
[2019-02-02] MEDS: ZYLOPRIM PO SCH (10:41)
[2019-02-02] MEDS: ICOSAPENT ETHYL PO SCH ×2 (10:42→22:47)
[2019-02-02] MEDS: PATIENT'S OWN MED BOTH EYES SCH ×2 (10:43→22:48)
[2019-02-02] MEDS: TEARISOL OPH SOLUTION BOTH EYES SCH ×4 (10:43→22:50)
[2019-02-02] MEDS: MIRALAX PO SCH ×2 (10:44→22:48)
[2019-02-02] MEDS: LASIX IV SCH ×2 (10:54→22:45)
[2019-02-02] MEDS: PULMICORT INH SCH ×2 (11:07→21:08)
--- NOTE | 2019-02-02 15:56 | CARDIOLOGY PROGRESS NOTE ---
DATE: 02/02/2019 SUBJECTIVE: Mr. De Leon is severely cognitively impaired, not able to provide any history. OBJECTIVE: Vital signs: Afebrile. His heart rates on documentation have been in the 110s to 130s. Generally: He is in no acute distress. Cardiovascular: He is in a regular rate and rhythm. He has no murmurs. No S3. No lower extremity edema. Chest: Clear bilaterally. No increased work of breathing. Abdomen: Soft, nontender. PERTINENT DATA: His white count is 6.8, hematocrit 37, platelet count 199,000. Sodium 140, potassium is 5, BUN 33, creatinine is 1.3, magnesium level is 1.8. ASSESSMENT: Mr. De Leon is a 58-year-old gentleman with a history of atrial fibrillation, intermittent third degree AV block, who had a pacemaker implanted. He appeared to be presenting with episodes of pacemaker mediated tachycardia. PLAN: In discussion with Dr. Aldo Todd we made adjustments to the patient's device. We lowered the max track rate to 120. This seemed to terminate most of the episodes during monitoring of the patient on the device. We will have him follow up with EP as an outpatient. He has around 6 months prior to needing the device replaced. We will try to get this done in the near future. cc: Federico Lopez MD
--- NOTE | 2019-02-02 22:33 | PROGRESS NOTE ---
DATE: 02/02/2019 SUBJECTIVE: Patient has no complaints. There is no sitter currently in the room. His heart rates have been elevated. OBJECTIVE: Vital signs: Temperature 97.9 degrees, pulse 126, respiratory rate 18, BP 123/87. General: Patient is awake. He is in no current distress. He is lying in bed watching TV. HEENT: Normocephalic. Neck: Supple. Cardiovascular: Regular rate. Chest: Clear. ASSESSMENT: 1. Acute diastolic dysfunction. 2. Atrial fibrillation currently with tachycardia. 3. Chronic renal failure. 4. Bipolar. 5. Autism. 6. Severe intellectual disability. PLAN: [*]Andie has done an excellent job in tracking down the ability to reset Mr. De Leon's pacemaker. They will interrogate his pacemaker and hopefully reset his rate. We will continue to follow. Continue Cardizem and Toprol for now. cc: Kyle Gilbert MD
[2019-02-02] MEDS: KLONOPIN PO SCH (22:46)
[2019-02-02] MEDS: DEPAKOTE ER PO SCH (22:48)
[2019-02-02] MEDS: SINGULAIR PO SCH (22:50)
[2019-02-02] MEDS: PROSCAR PO SCH (22:50)
[2019-02-02] MEDS: ZOCOR PO SCH (22:51)
[2019-02-03] MEDS: ATROVENT NEB INH SCH ×4 (02:59→21:49)
[2019-02-03] MEDS: SYNTHROID PO SCH (06:21)
[2019-02-03] MEDS: PRILOSEC PO SCH (06:22)
[2019-02-03] MEDS: PATIENT'S OWN MED BOTH EYES SCH ×2 (09:30→22:14)
[2019-02-03] MEDS: MIRALAX PO SCH ×2 (09:31→22:12)
[2019-02-03] MEDS: TEARISOL OPH SOLUTION BOTH EYES SCH ×4 (09:31→22:13)
[2019-02-03] MEDS: SEROQUEL PO SCH ×3 (09:32→22:10)
[2019-02-03] MEDS: LOPRESSOR PO SCH ×2 (09:32→22:11)
[2019-02-03] MEDS: FLOMAX PO SCH (09:32)
[2019-02-03] MEDS: ZYLOPRIM PO SCH (09:32)
[2019-02-03] MEDS: THERA M PLUS PO SCH (09:32)
[2019-02-03] MEDS: ICOSAPENT ETHYL PO SCH ×2 (09:33→22:17)
[2019-02-03] MEDS: COLACE PO SCH (09:33)
[2019-02-03] MEDS: AMITIZA PO SCH ×2 (09:33→16:53)
[2019-02-03] MEDS: ELIQUIS PO SCH ×2 (09:33→22:12)
[2019-02-03] MEDS: LASIX PO SCH ×2 (09:53→22:11)
[2019-02-03] MEDS: PULMICORT INH SCH ×2 (09:57→21:49)
--- NOTE | 2019-02-03 19:43 | PROGRESS NOTE ---
DATE: 02/03/2019 SUBJECTIVE: Patient himself has no complaints. PHYSICAL: Temperature 97, pulse 60 to 120, respiratory 12, BP 112/62, saturation 96% on room air.General: Patient is very pleasant, he is in no distress. HEENT: Normocephalic. Neck: Supple. CV: Regular rate. Chest: Clear. Abdomen: Soft. Extremities: Moves all extremities. ASSESSMENT: 1. Acute diastolic congestive heart failure stable. 2. Atrial fibrillation stable. 3. Chronic renal failure stable. 4. Bipolar stable. 5. Autism. 6. Severe intellectual disability. 7. Hypothyroidism. PLAN: Patient's pacemaker has been adjusted. He has been on Lasix IV. Will decrease this to p.o. and will continue to follow. His heart rates are much improved. If he tolerates hopefully can discharge home over the next 1 or 2 days. cc: Kyle Gilbert MD
[2019-02-03] MEDS: DEPAKOTE ER PO SCH (22:09)
[2019-02-03] MEDS: PROSCAR PO SCH (22:10)
[2019-02-03] MEDS: ZOCOR PO SCH (22:11)
[2019-02-03] MEDS: KLONOPIN PO SCH (22:11)
[2019-02-03] MEDS: SINGULAIR PO SCH (22:12)
[2019-02-04] MEDS: ATROVENT NEB INH SCH ×2 (03:54→08:30)
[2019-02-04] MEDS: PRILOSEC PO SCH (06:41)
[2019-02-04] MEDS: SYNTHROID PO SCH (06:41)
[2019-02-04] MEDS: PULMICORT INH SCH (08:30)
[2019-02-04] MEDS: THERA M PLUS PO SCH (08:52)
[2019-02-04] MEDS: MIRALAX PO SCH (08:52)
[2019-02-04] MEDS: LASIX PO SCH (08:53)
[2019-02-04] MEDS: ZYLOPRIM PO SCH (08:53)
[2019-02-04] MEDS: LOPRESSOR PO SCH (08:53)
[2019-02-04] MEDS: AMITIZA PO SCH (08:53)
[2019-02-04] MEDS: ELIQUIS PO SCH (08:54)
[2019-02-04] MEDS: FLOMAX PO SCH (08:54)
[2019-02-04] MEDS: SEROQUEL PO SCH (08:54)
[2019-02-04] MEDS: ICOSAPENT ETHYL PO SCH (08:55)
[2019-02-04] MEDS: PATIENT'S OWN MED BOTH EYES SCH (10:36)
[2019-02-04] MEDS: TEARISOL OPH SOLUTION BOTH EYES SCH ×2 (10:36→12:00)
[2019-02-04 11:46] VITALS: BP 114/69
--- NOTE | 2019-02-04 23:34 | DISCHARGE SUMMARY ---
ADMISSION DATE: 01/30/2019 DISCHARGE DATE: 02/04/2019 DIAGNOSES: 1. Acute on chronic congestive heart failure, stable. 2. Atrial fibrillation, stable. 3. Chronic kidney disease stage 3. This is stable. 4. Bipolar, autism, intellectual disability. He is at his baseline and this is stable. 5. Hypothyroid with a TSH of 0.2. 6. Chronic obstructive pulmonary disease with no exacerbation on home O2 at 2 L. 7. Seizure disorder, stable. 8. Gastroesophageal reflux disease with a history of peptic ulcer disease. 9. Hypertension. 10. Chronic thrombocytopenia. 11. High atrioventricular block status post pacemaker placement. DIAGNOSTICS: 1. 01/30/2019 chest x-ray revealed decreasing pulmonary opacity and effusion particular in the right lung. 2. Echocardiogram revealed an ejection fraction of 50 to 54 percent with wall motion abnormality related to the presence of a pacemaker activity. No diastolic dysfunction. Pulmonary pressure of 51 to 56. 3. Bilateral lower extremity Doppler revealed no evidence of DVT. HOSPITAL COURSE: Mr. De Leon presented to the emergency room after having lethargy and increased respiratory rate despite his home oxygen. He was noted to have episodes of tachycardia up to the 120s in the emergency room having sinus rhythm with paroxysmal atrial fibrillation as well as atrial flutter with what appeared to be pacemaker mediated tachycardia with episodes of atrial flutter. He was evaluated by Dr. Mantilla in Cardiology who on the he was noticed to have heart rates as high as the 140s to 150s. He had persistent heart rates in the 130s. He was re- evaluated by Dr. Federico Lopez who lowered the max track rate of his pacemaker to 120, which did terminate most of these episodes and since heart rates have been in the 70s to 80s. The patient was asymptomatic to tachycardia. He was diuresed for a cumulative negative balance of 6800 mL. Today, he is breathing normally with respirations 12 to 16. He denies any shortness of breath. His sitters state that he appears back to his normal self. Thankfully, he is ready to return to his custodial. DISCHARGE VITAL SIGNS: Blood pressure is 114/69 with a heart rate of 69, respirations 18, temperature 97.8 degrees oral with O2 saturation 95 to 99 percent on 2 L nasal cannula. Cardiovascular: Irregularly irregular rate and rhythm. S1 and S2 appreciated. Pulmonary: Breath sounds are clear with no increased work of breathing noted. Chest rises and falls symmetrically with respiration. Chest wall is nontender to palpation. Gastrointestinal: Abdomen is soft, nontender, nondistended with bowel sounds in all 4 quadrants. DISCHARGE MEDICATIONS: 1. DuoNebs b.i.d. 2. Allopurinol 300 mg p.o. daily. 3. Eliquis 5 mg p.o. b.i.d. 4. Optivar 0.05% ophthalmic solution 1 drop both eyes b.i.d. 5. Symbicort 160/4.5 two puffs b.i.d. 6. Klonopin 2 mg p.o. at bedtime. 7. Artificial Tears to both eyes 4 times a day. 8. Cardizem 30 mg p.o. q.6 hours. 9. Depakote ER 1000 mg p.o. at bedtime. 10. Colace every other day. 11. Finasteride 5 mg p.o. at bedtime. 12. Lasix 40 mg p.o. daily. 13. Vascepa 2 capsules p.o. b.i.d. 14. Levothyroxine 175 mcg at 6 a.m. 15. Amitiza 24 mcg p.o. b.i.d. 16. Lopressor 100 mg p.o. b.i.d. 17. Singulair 10 mg p.o. at bedtime. 18. Centrum tablet 1 p.o. daily. 19. Omeprazole 20 mg p.o. at 7 a.m. 20. MiraLAX 17 g p.o. b.i.d. 21. Seroquel 300 mg at 9, 3 and 9. 22. Zocor 10 mg p.o. at bedtime. 23. Flomax 0.4 mg p.o. daily. FOLLOWUP: He needs to follow up Federico Lopez 03/03/2019 at 11 a.m. He is being discharged home in stable condition with custodial staff. TIME SPENT: This is a greater than 30 minute discharge. Dictated by MELISSA Meyers for Kyle Gilbert MD cc: MELISSA Meyers MD
--- NOTE | 2019-02-08 05:41 | DISCHARGE SUMMARY ---
ADMISSION DATE: 01/30/2019 DISCHARGE DATE: 02/04/2019 ADDENDUM: Patient seen and examined by myself. Full note dictated and discussed with nurse practitioner. On discharge, patient is awake, alert, currently in no distress. Was admitted to the hospital with acute on chronic congestive heart failure and atrial fibrillation. The patient was treated. Had a prolonged course secondary to his heart rate being difficult to control. On discharge, patient is in no distress. He is on oxygen at home. He has a known history of COPD. He will be discharged back to the longterm. Please see full dictation. cc: Kyle Gilbert MD
== END 2019-02-04 13:41 | disposition home or self-care (01) | DRG 308 ==
LOC: P.ED 07:01 → SUATTDRO 07:02 → P.MEDSURG 07:02 → P.ICU 14:12 → P.MEDSURG 01-31 18:08
PROVIDERS: ATTEND Family Medicine
CPT/HCPCS: 71010; 71045; 74019; 74020; 80048; 80053; 80061; 81001; 82550; 82805; 83036; 83721; 83735; 83880; 84439; 84443; 84484; 85025; 85610; 85730; 93005; 93306; 93970; 94640; 94761; 94799; 97162; 99283; 99285; A9270; C8929; J1160; J1940; J2405; Q9957; S0138

== ENCOUNTER 2019-02-20 23:47 | Inpatient (IN) ==
[2019-02-21 00:17] LABS: I-STAT BE 21 mmoll (-2-3); I-STAT GLUCOSE 91 mg/dL (70-105); I-STAT HEMOGLOBIN 12.2 g/dL (11.5-17.5); I-STAT K 4.9 mmoll (3.5-4.9); I-STAT pH 7.412 (7.350-7.450)
[2019-02-21 00:24] LABS: BLOOD TYPE ARTERIAL; SAMPLE BLOOD
[2019-02-21 00:31] LABS: I-STAT TCO2 48 mmoll (23-27)
[2019-02-21 00:35] LABS: BASO# 0.02 X1000 (0.0-0.2); BASO% 0.2 % (0.0-0.8); EOS# 0.17 X1000 (0.0-0.7); EOS% 1.8 % (0.0-10.0); HEMATOCRIT 36.2 % (42.0-52.0); HEMOGLOBIN 11.3 g/dL (14.0-18.0); IMM GRAN# 0.15 X1000 (0.0-0.04); IMM GRAN% 1.6 % (0.0-0.5); LYMPH# 1.32 X1000 (1.2-3.4); LYMPH% 13.9 % (20.5-51.1); MCH 29.7 PG (27-31); MCHC 31.2 g/dL (33-37); MONO# 0.94 X1000 (0.11-0.59); MONO% 9.9 % (1.7-9.3); MPV 10.9 FL (7.4-10.4); NEUT# 6.89 X1000 (1.4-6.5); NEUT% 72.6 % (42.2-75.2); PLT 223 X1000 (130-400); RBC 3.81 XMIL (4.7-6.1); RDW 15.3 % (11.5-14.5); WBC 9.49 X1000 (4.8-10.8)
[2019-02-21 01:08] LABS: BILIRUBIN URINE NEGATIVE (NEGATIVE); BLOOD URINE NEGATIVE (NEGATIVE); CLARITY CLEAR (CLEAR); COLOR YELLOW; GLUCOSE URINE NEGATIVE (NEGATIVE); KETONE URINE NEGATIVE (NEGATIVE); LEUKOCYTES URINE TRACE (NEGATIVE); NITRITE URINE NEGATIVE (NEGATIVE); PROTEIN URINE NEGATIVE (NEGATIVE); URINE BACTERIA 1+ /HFP; URINE EPITHELIAL CELLS <10 /HPF (<10); URINE RBC <10 /HPF (<10); URINE SOURCE CLEAN CATCH; URINE WBC <10 /HPF (<10); UROBILINOGEN URINE NORMAL
[2019-02-21 01:34] LABS: ALBUMIN 3.1 g/dL (3.5-5.0); CALCIUM 8.4 mg/dL (8.8-10.2); CREATININE 1.3 mg/dL (0.7-1.2); POTASSIUM 5.3 mmol/L (3.5-5.1); TOTAL BILIRUBIN 0.2 mg/dL (0.20-1.00); TOTAL PROTEIN 5.4 g/dL (6.3-8.3)
--- NOTE | 2019-02-21 06:58 | Diag Imaging Result Doc PS360 ---
EXAM: CHEST-PORTABLE HISTORY: ams TECHNIQUE: Chest single view COMPARISON: 02/13/2019 FINDINGS: Poor inspiratory effort. Heart is borderline mildly prominent. There is a left-sided pacemaker. Pulmonary edema is less pronounced. No consolidation. No pleural effusion. IMPRESSION: Interval improvement. Electronically signed by Sergei Dickerson 02/21/2019 6:56 AM
[2019-02-21] MEDS ORDERED: SOLU-MEDROL IV SCH (07:45)
[2019-02-21] MEDS ORDERED: ROCEPHIN 1 GM in NS 50 ML IV SCH (07:45)
[2019-02-21 08:18] LABS: ESTIMATED GFR > 60
[2019-02-21 08:19] LABS: BLOOD TYPE ARTERIAL; SAMPLE BLOOD
[2019-02-21 08:20] LABS: pH(98.6) 7.43 (7.35-7.45)
[2019-02-21 08:21] LABS: PCO2(98.6) 70 mmHg (35-45)
[2019-02-21 08:22] LABS: HCO3-(ACT) 45.9 mmoll (20.0-26.0); PO2(98.6) 55 mmHg (60-100)
[2019-02-21 08:23] LABS: ALLEN TEST YES; MODALITY ROOM AIR
[2019-02-21 08:31] LABS: AGAP 3; BUN 22 mg/dL (8-22); CALCIUM 8.5 mg/dL (8.8-10.2); CHLORIDE 93 mmol/L (98-107); CK PROFILE 11 U/L (24-204); COSMO 280; CREATININE 1.2 mg/dL (0.7-1.2); GLUCOSE 91 mg/dL (70-104); SODIUM 139 mmol/L (136-145); TCO2 43 mmol/L (25-35)
[2019-02-21] MEDS: XOPENEX NEB INH SCH ×4 (10:38→23:17)
[2019-02-21] MEDS: ELIQUIS PO SCH (12:51)
[2019-02-21] MEDS: CARDIZEM PO SCH ×3 (12:51→23:05)
[2019-02-21] MEDS: LOPRESSOR PO SCH (12:51)
--- NOTE | 2019-02-21 13:23 | HISTORY AND PHYSICAL ---
ADDENDUM: The patient was brought to the hospital for a hypoxic episode. In the ER, his oxygen easily returned back to normal. I certainly think this is more related to him removing his oxygen at home. There was some question about his pacemaker. This was evaluated the last time [facility] was [facility]. We will continue to follow. The patient is DNR per his parents wish. cc: Kyle Gilbert MD
--- NOTE | 2019-02-21 14:11 | HISTORY AND PHYSICAL ---
PCP: Unknown. CHIEF COMPLAINT: Hypoxia. PRESENT ILLNESS: Mr. De Leon is a 58-year-old male, who has been recently discharged from our service for acute COPD exacerbation, and who is developmentally delayed, living at the [facility]. He presents to our facility again for acute hypoxia. Patient is unable to give any type of history due to mental status. Per reports, he was noted to be a bit lethargic. At the care home they checked his O2 saturation, and he was found to be in the 60s. He was brought here and his initial blood gas did reveal hypoxia and hypercapnia. He was placed on BiPAP and placed in the ICU. Chest x-ray did show improvement in edema since his last admission. The rest of his laboratory data was unremarkable. Apparently, he takes his oxygen off at the [facility] and sometimes becomes hypoxic, but there is no fever. He is not hypotensive and no leukocytosis. He will be admitted for observation. PAST MEDICAL HISTORY: 1. Recent admission for COPD exacerbation. 2. Atrial fibrillation with pacemaker. 3. COPD and chronic respiratory failure on home O2. 4. Hypertension. 5. Hyperlipidemia. 6. History of GI bleed. 7. Hypothyroidism. 8. Seizure disorder. 9. Profound mental retardation/developmental delay. SURGICAL HISTORY: He has had a pacemaker placement, partial right nephrectomy, abdominal incisional hernia repair, cataract surgery, bilateral renal cyst excision, adenoidectomy. FAMILY HISTORY: Unknown. SOCIAL HISTORY: He lives at the [facility]. No tobacco, alcohol, or drug use. REVIEW OF SYSTEMS: Unable to obtain. ALLERGIES: IV and oral iodine contrast, NSAIDs and sulfacetamide. HOME MEDICATIONS: Amitiza 24 mcg p.o. b.i.d., multivitamin 1 daily, Depakote ER 1000 mg p.o. at bedtime, Eliquis 5 mg b.i.d., finasteride 5 mg at bedtime, Flomax 0.4 mg daily, Klonopin 2 mg p.o. at bedtime, levothyroxine 175 mcg daily, omeprazole 20 mg daily, MiraLAX 17 g b.i.d., azelastine eye drops daily, Seroquel 300 mg p.o. t.i.d., Singulair 10 mg at bedtime, Colace 250 mg p.o. in the evening, budesonide formoterol inhaler 6.9 g inhaler 2 puffs b.i.d., Vascepa 2 caps p.o. b.i.d., Zyloprim 300 mg daily, Cardizem 30 mg p.o. q. 6 hours, Lasix 40 mg daily, Lopressor 100 mg p.o. b.i.d. PHYSICAL EXAM: VITAL SIGNS: Blood pressure 118/97, heart rate 68, respiratory rate 18, O2 saturation 100% on nasal cannula 2 L, temperature is 97 degrees Fahrenheit. GENERAL: This is a chronically ill, disheveled-appearing, 58-year-old male lying in hospital bed in no acute distress. NEUROLOGIC: The patient will follow commands without any loss of strength in the extremities. He is disoriented. He does not answer orientation questions, only repetitive statements that are essentially incomprehensible. HEENT: Head is atraumatic and normocephalic. His pupils are equal, round, and reactive to light. His oral mucosa is a bit dry. NECK: Trachea is midline. CHEST: Diminished at the bases, but clear to auscultation bilaterally. CARDIOVASCULAR: Regular rate and rhythm. S1, S2 as noted. There are no murmurs. GI: Soft, nondistended, nontender. Bowel sounds positive. EXTREMITIES: No edema. Pulses 1+ bilaterally. DIAGNOSTIC DATA: Chest x-ray shows interval improvement of pulmonary edema, nothing acute. WBC 9.49, hemoglobin 11.3, hematocrit 36.2, platelet count 223. Most recent ABG on room air: The pH 7.43, pCO2 70, PO2 55, bicarbonate 45.9, base excess 22. This is on room air. Sodium 139, potassium 5, chloride 93, CO2 43, anion gap 3. BUN 22, creatinine 1.2, glucose 91, calcium 8.5, AST/ALT 5, alkaline phosphatase 71. CK 11, troponin negative x2 sets. ProBNP 958. Protein 5.4, albumin 3.1. UA is negative. ASSESSMENT AND PLAN: 1. Acute on chronic hypoxic and hypercapnic respiratory failure: Likely due to the patient taking off his oxygen. There is no pneumonia. He is not wheezing that would indicate chronic obstructive pulmonary disease, and his oxygen saturations are back to normal. We will run one more set of cardiac enzymes later today and watch him for the rest of the day, and tomorrow if he is stable, then we can probably discharge him back. 2. Atrial fibrillation and dual chamber pacemaker: Stable. Electrocardiogram shows a sensed V- paced rhythm. Continue home medications. 3. Chronic obstructive pulmonary disease: Not in exacerbation. Lung sounds are clear. We will continue home medications, breathing treatments, pulmonary toilet. 4. Mental retardation: Aware. Continue home medications. 5. Seizure disorder, stable: Continue home medications. 6. Hypertension, stable. Continue home medications. 7. Hypothyroidism, stable. Continue home medications. 8. Deep vein thrombosis prophylaxis with home Eliquis. Further recommendations to follow this. Dictated by MELISSA Owens for Kyle Gilbert MD cc: MELISSA Owens MD
[2019-02-21] MEDS: SEROQUEL PO SCH ×2 (14:54→20:22)
[2019-02-21] MEDS: AMITIZA PO SCH (16:49)
[2019-02-21] MEDS: ICOSAPENT ETHYL PO SCH (16:50)
[2019-02-21 18:09] LABS: URINE SOURCE CATH
[2019-02-21 18:28] LABS: BILIRUBIN URINE NEGATIVE (NEGATIVE); CLARITY VERY CLOUDY (CLEAR); COLOR RED; GLUCOSE URINE NEGATIVE (NEGATIVE)
[2019-02-21 18:29] LABS: BLOOD URINE 4+ (NEGATIVE); KETONE URINE NEGATIVE (NEGATIVE); LEUKOCYTES URINE TRACE (NEGATIVE); NITRITE URINE NEGATIVE (NEGATIVE); UROBILINOGEN URINE NORMAL
[2019-02-21 18:30] LABS: URINE BACTERIA 1+ /HFP; URINE CAST NONE SEEN /LPF; URINE CRYSTAL NONE SEEN /HPF; URINE EPITHELIAL CELLS <10 /HPF (<10); URINE RBC TNTC /HPF (<10); URINE WBC <10 /HPF (<10); URINE YEAST NONE SEEN /HPF
[2019-02-21] MEDS: SYMBICORT 160/4.5 MICROGM INHALER INH SCH (19:43)
[2019-02-21] MEDS: PROSCAR PO SCH (20:21)
[2019-02-21] MEDS: SINGULAIR PO SCH (20:22)
[2019-02-21] MEDS: KLONOPIN PO SCH (20:22)
[2019-02-21] MEDS: DEPAKOTE ER PO SCH (20:22)
[2019-02-21] MEDS: ZOCOR PO SCH (20:22)
[2019-02-21] MEDS: MIRALAX PO SCH (20:23)
[2019-02-22] MEDS: XOPENEX NEB INH SCH ×6 (03:22→23:12)
[2019-02-22 05:11] LABS: EOS# 0.02 X1000 (0.0-0.7); EOS% 0.2 % (0.0-10.0); HEMATOCRIT 34.8 % (42.0-52.0); HEMOGLOBIN 10.9 g/dL (14.0-18.0); IMM GRAN# 0.08 X1000 (0.0-0.04); IMM GRAN% 0.8 % (0.0-0.5); LYMPH# 0.93 X1000 (1.2-3.4); LYMPH% 9.1 % (20.5-51.1); MCHC 31.3 g/dL (33-37); MCV 92.6 FL (81-99); MONO# 0.82 X1000 (0.11-0.59); NEUT# 8.38 X1000 (1.4-6.5); NEUT% 81.9 % (42.2-75.2); PLT 211 X1000 (130-400); RBC 3.76 XMIL (4.7-6.1); RDW 15.1 % (11.5-14.5); WBC 10.23 X1000 (4.8-10.8)
[2019-02-22 05:48] LABS: CALCIUM 8.7 mg/dL (8.8-10.2); CREATININE 1.5 mg/dL (0.7-1.2); POTASSIUM 4.9 mmol/L (3.5-5.1)
[2019-02-22] MEDS ORDERED: SYNTHROID PO SCH (06:00)
[2019-02-22] MEDS: CARDIZEM PO SCH ×4 (06:07→23:53)
[2019-02-22] MEDS: SYNTHROID PO SCH ×2 (06:07)
[2019-02-22] MEDS: PRILOSEC PO SCH (06:08)
[2019-02-22] MEDS: SYMBICORT 160/4.5 MICROGM INHALER INH SCH ×2 (07:49→19:13)
[2019-02-22] MEDS: MIRALAX PO SCH ×2 (08:04→20:13)
[2019-02-22] MEDS: AMITIZA PO SCH ×2 (08:04→17:30)
[2019-02-22] MEDS: ICOSAPENT ETHYL PO SCH ×2 (08:05→17:30)
[2019-02-22] MEDS: FLOMAX PO SCH (08:07)
[2019-02-22] MEDS: LOPRESSOR PO SCH ×2 (08:07→20:14)
[2019-02-22] MEDS: ZYLOPRIM PO SCH (08:07)
[2019-02-22] MEDS: THERA M PLUS PO SCH (08:08)
[2019-02-22] MEDS: SEROQUEL PO SCH ×3 (08:08→20:14)
[2019-02-22] MEDS: LASIX PO SCH (08:08)
[2019-02-22] MEDS: ELIQUIS PO SCH (08:09)
[2019-02-22] MEDS: ROCEPHIN 1 GM in NS 50 ML IV SCH (11:17)
--- NOTE | 2019-02-22 14:45 | Diag Imaging Result Doc PS360 ---
EXAM: US RENAL 2 (RETROPER) COMPLETE INDICATION: fatou TECHNIQUE: COMPARISON: None. FINDINGS: The right kidney is somewhat atrophic. There are multiple small renal cysts, mainly on the left, compatible with known polycystic kidney disease. No solid renal mass or hydronephrosis is identified. The right kidney measures 8.9 cm and the left kidney measures 15.2 cm in the greatest longitudinal axes. The largest cyst on the left is 3.1 cm. There is a Isabel catheter in the urinary bladder and the bladder is nondistended. IMPRESSION: 1.Multiple small renal cysts consistent with known polycystic kidney disease. 2.Mildly atrophic right kidney. Electronically signed by Boyd Zhang 02/22/2019 2:43 PM
--- NOTE | 2019-02-22 17:29 | PROGRESS NOTE ---
DATE: 02/22/2019 SUBJECTIVE: Patient has no current complaints. OBJECTIVE: Vital Signs: Reviewed and stable. General: He is awake, alert. He is in no distress. He is lying in the bed. HEENT: Normocephalic. Neck: Supple. Cardiovascular: Regular rate. Chest: Clear. Abdomen: Soft. Extremities: Moves all extremities. ASSESSMENT: 1. Acute on chronic hypoxic and hypercapnic respiratory failure. This appears to have been easily remedied by placing him on his home oxygen which he frequently refuses to wear. 2. Atrial fibrillation with dual chamber pacemaker. 3. Chronic obstructive pulmonary disease, appears at his baseline. 4. Chronic severe intellectual impairment. 5. Hypertension. 6. Hypothyroidism. PLAN: Overall, patient is stable. Heart rates are still elevated. As opposed to discharging him home, we are going to move him to the floor, continue to follow his heart rates, and see. Apparently he just had his pacemaker adjusted due to bradycardia while at the [facility], which is interesting as it had to be adjusted due to tachycardia while he was in the hospital the last time. cc: Kyle Gilbert MD
[2019-02-22] MEDS: KLONOPIN PO SCH (20:14)
[2019-02-22] MEDS: ZOCOR PO SCH (20:14)
[2019-02-22] MEDS: PROSCAR PO SCH (20:15)
[2019-02-22] MEDS: DEPAKOTE ER PO SCH (20:15)
[2019-02-22] MEDS: SINGULAIR PO SCH (20:17)
[2019-02-23] MEDS: XOPENEX NEB INH SCH ×7 (03:55→23:20)
[2019-02-23 05:44] LABS: BASO# 0.01 X1000 (0.0-0.2); BASO% 0.1 % (0.0-0.8); EOS# 0.09 X1000 (0.0-0.7); EOS% 1.2 % (0.0-10.0); HEMATOCRIT 36.6 % (42.0-52.0); HEMOGLOBIN 11.5 g/dL (14.0-18.0); IMM GRAN# 0.08 X1000 (0.0-0.04); IMM GRAN% 1.1 % (0.0-0.5); LYMPH# 1.65 X1000 (1.2-3.4); LYMPH% 22.3 % (20.5-51.1); MCH 29.2 PG (27-31); MCHC 31.4 g/dL (33-37); MCV 92.9 FL (81-99); MONO% 9.5 % (1.7-9.3); MPV 10.9 FL (7.4-10.4); NEUT# 4.87 X1000 (1.4-6.5); NEUT% 65.8 % (42.2-75.2); PLT 179 X1000 (130-400); RBC 3.94 XMIL (4.7-6.1); RDW 15.6 % (11.5-14.5)
[2019-02-23 05:49] LABS: CALCIUM 8.5 mg/dL (8.8-10.2); CREATININE 1.6 mg/dL (0.7-1.2); POTASSIUM 4.9 mmol/L (3.5-5.1)
[2019-02-23] MEDS: SYNTHROID PO SCH ×2 (05:53)
[2019-02-23] MEDS: CARDIZEM PO SCH ×4 (05:53→22:07)
[2019-02-23] MEDS: PRILOSEC PO SCH (06:04)
[2019-02-23] MEDS: SYMBICORT 160/4.5 MICROGM INHALER INH SCH ×2 (08:03→19:15)
[2019-02-23] MEDS ORDERED: COLACE PO SCH (09:00)
[2019-02-23] MEDS ORDERED: NS 500 ML IV ONE (09:06)
[2019-02-23 09:14] LABS: I-STAT BE 10 mmoll (-2-3); I-STAT GLUCOSE 81 mg/dL (70-105); I-STAT HEMOGLOBIN 12.2 g/dL (11.5-17.5); I-STAT K 4.6 mmoll (3.5-4.9); I-STAT TCO2 37 mmoll (23-27); I-STAT pH 7.385 (7.350-7.450)
--- NOTE | 2019-02-23 09:31 | PROGRESS NOTE ---
DATE: 02/23/2019 SUBJECTIVE: The patient has severe mental retardation. As per caregiver, who is at bedside, he is apparently feeling fine. OBJECTIVE: Vital Signs: Temperature 97.9, heart rate 70, respiratory 17, blood pressure 90/65, O2 saturation 100% on 2 L nasal cannula. General Examination: This is a chronically ill- appearing 58-year-old male with history of mental retardation lying in bed in no acute distress. HEENT: Head is normocephalic, atraumatic. Poor dentition and mucous membranes dry. Neck: No JVD noted. No carotid bruits. No lymphadenopathy. No thyromegaly. Cardiovascular: S1, S2 heard. No murmurs, gallops, or rubs. Regular rate and rhythm. Respiratory: Decreased breath sounds globally. Minimal coarse breath sounds in both bases. Patient is not using any accessory muscles or having work of breathing. Abdomen: Soft. A little bit distended. Nontender to palpation. Bowel sounds present. No organomegaly. Extremities: No clubbing, cyanosis, or edema. Peripheral pulses present in both legs. Neurological: Patient follow commands. He does not answer any questions appropriately. His speech is essentially incomprehensible. LABORATORY DATA: White cell count 7.4, hemoglobin 11.5, hematocrit 36.6, platelets 000. BMP shows creatinine 1.6. ASSESSMENT AND PLAN: 1. Acute on chronic hypoxic and hypercapnic respiratory failure. Apparently, at the senior care he takes off oxygen that he is supposed to use. He does require 2 L of oxygen by nasal cannula. In any case, considering that this patient has elevated CO2 and the pCO2 was elevated of 70, he was placed on BiPAP. He used the BiPAP yesterday. We are going to check ABG today. We will continue with breathing treatments if needed and oxygen supplementation. We are going to transfer this patient to a regular floor today. If ABG is okay, the patient can be discharged from pulmonary standpoint. 2. Acute kidney injury. As we mentioned, the creatinine was normal at 1.2, but has gone up to 1.6 today. On checking the creatinine for the last 2 to 3 years creatinine has been ranging between normal to 1.5-1.6. In any case, I am planning to provide 1 bolus of 500 mL normal saline and continue with 75 mL per hour fluids maintenance and if the creatinine is the same or better, I think we can discharge this patient back to his senior care. 3. Atrial fibrillation on dual chamber pacemaker, stable. 4. Chronic obstructive pulmonary disease, apparently not in any exacerbation. He does not have any wheezing. Lungs sounds are clear. Will continue with the same management. 5. Mental retardation as we mentioned before. 6. Seizure disorder, stable. We will continue home medications. 7. Hypertension, stable. Actually the blood pressure has been running in the range of 90s and 100s. On checking on previous visits that has been his blood pressure. Will see if with normal saline that can go up a little bit but apparently he is not symptomatic. 8. Hypothyroidism, stable. We will continue home doses of levothyroxine. 9. Deep venous thrombosis prophylaxis. Patient is on home Eliquis. 10. Disposition. I think at this point this patient is stable to be moved to a regular room. If renal function is stable tomorrow he can be discharged. cc: Juan Jose Bhatt MD
[2019-02-23] MEDS: SEROQUEL PO SCH ×3 (10:20→22:07)
[2019-02-23] MEDS: FLOMAX PO SCH (10:21)
[2019-02-23] MEDS: LOPRESSOR PO SCH ×2 (10:22→22:06)
[2019-02-23] MEDS: THERA M PLUS PO SCH (10:22)
[2019-02-23] MEDS: LASIX PO SCH (10:23)
[2019-02-23] MEDS: ROCEPHIN 1 GM in NS 50 ML IV SCH (10:23)
[2019-02-23] MEDS: ZYLOPRIM PO SCH (10:23)
[2019-02-23] MEDS: MIRALAX PO SCH ×2 (10:24→22:06)
[2019-02-23] MEDS: ICOSAPENT ETHYL PO SCH ×2 (10:24→16:45)
[2019-02-23] MEDS: AMITIZA PO SCH ×2 (10:25→16:45)
[2019-02-23] MEDS: NS 1,000 ML IV SCH (12:40)
[2019-02-23] MEDS: SINGULAIR PO SCH (22:07)
[2019-02-23] MEDS: PROSCAR PO SCH (22:08)
[2019-02-23] MEDS: ZOCOR PO SCH (22:08)
[2019-02-23] MEDS: DEPAKOTE ER PO SCH (22:08)
[2019-02-23] MEDS: KLONOPIN PO SCH (22:10)
[2019-02-24] MEDS: CARDIZEM PO SCH ×3 (00:42→07:23)
[2019-02-24] MEDS: NS 1,000 ML IV SCH (00:42)
--- NOTE | 2019-02-24 02:26 | PROVIDER DOCUMENTATION ---
This chart was entered by Rebecca Crum Scribe, acting as scribe for Fredy Yousif MD. HPI-Neurological Disorder - General Chief Complaint: Altered Mental Status Stated Complaint: AMS Time Seen by Provider: 02/20/19 23:49 Source: EMS, other (health care marketing manager) Allergies/Adverse Reactions: Patient Allergies Allergy/AdvReac Type Severity Reaction Status Date / Time sulfacetamide Allergy Intermediate EYE Verified 02/13/19 09:01 SWELLING Iodinated Contrast- Oral and Allergy Unknown Unknown Verified 02/13/19 09:01 IV Dye NSAIDS (Non-Steroidal AdvReac Unknown Verified 02/13/19 09:01 Anti-Inflamma Home Medications: Home Medication List Medication Instructions Recorded Confirmed Last Taken Type Allopurinol [Zyloprim] 300 mg PO DAILY 01/28/17 02/21/19 03/17/18 07:00 History Divalproex E.r. [Depakote ER] 2 tab PO QHS 01/28/17 02/21/19 03/16/18 21:00 History Finasteride 5 mg PO HS 01/28/17 02/21/19 03/16/18 19:00 History Montelukast [Singulair] 10 mg PO QHS 01/28/17 02/21/19 03/16/18 19:00 History Multivitamins/Minerals [Centrum 1 each PO DAILY 01/28/17 02/21/19 03/17/18 07:00 History Tablet] Omeprazole 20 mg PO DAILY@0700 01/28/17 02/21/19 03/17/18 07:00 History Polyethylene Glycol 3350 [Miralax] 17 gm PO BID 01/28/17 02/21/19 03/16/18 21:00 History Quetiapine [Seroquel] 300 mg PO TID@0900,1500,2100 01/28/17 02/21/19 03/17/18 07:00 History SIMVAstatin [Zocor] 10 mg PO QHS 01/28/17 02/21/19 03/16/18 19:00 History Tamsulosin [Flomax] 0.4 mg PO DAILY 01/28/17 02/21/19 03/17/18 07:00 History Diltiazem [Cardizem] 30 mg PO Q6H 30 Days #120 tab 11/22/18 02/21/19 Unknown Rx Furosemide [Lasix] 40 mg PO DAILY 30 Days #30 tab 11/22/18 02/21/19 Unknown Rx Apixaban [Eliquis] 5 mg PO BID 01/30/19 02/21/19 Unknown History Clonazepam [Klonopin] 2 mg PO QHS 01/30/19 02/21/19 Unknown History Icosapent Ethyl [Vascepa] 2 cap PO BID 01/30/19 02/21/19 Unknown History Levothyroxine Sodium 175 mcg PO DAILY@0600 01/30/19 02/21/19 Unknown History Lubiprostone [Amitiza] 24 mcg PO BID 01/30/19 02/21/19 Unknown History Metoprolol Tartrate [Lopressor] 100 mg PO BID #60 tab 02/04/19 02/21/19 Unknown Rx CefDINIR [Omnicef] 300 mg PO BID #20 cap 02/14/19 02/21/19 Unknown Rx Azelastine 0.05% Oph Solution 1 drp BOTH EYES BID 02/21/19 02/21/19 Unknown History [Optivar 0.05% Oph Solution] Budesonide/Formoterol Inhaler 2 puff INH RTBID 02/21/19 02/21/19 Unknown History [Symbicort 160/4.5 Microgm Inhaler] Dextran 70/Hypromellose 1 ea OPHTHALMIC (EYE) 4XDAY 02/21/19 02/21/19 Unknown History [Artificial Tears] Docusate Ca [Surfak] 240 mg PO EVERY OTHER DAY 02/21/19 02/21/19 Unknown History - History of Present Illness-Neuro Nature of Presenting Problem: Pt is 58/M presenting to ED from care facility, his health care marketing manager is at bedside, she sts that when it was time to get ready for night time routine he was alert but unresponsive. He will not answer you or walk, when at baseline he does both. Pt does have hx of seizure, but there was not a witnessed incident this evening. Character of Altered Mental Status: reports: disoriented, decreased responsiveness Any recent trauma/injury?: reports: none Cognitive Baseline: alert but disoriented Gait Baseline: walks without assistance Associated Symptoms: denies: fainting, loss of consciousness Similar Symptoms Previously?: No Recently seen or treated by another doctor?: No Review of Systems - Adult - REVIEW OF SYSTEMS - ADULT ROS:: limited per condition Constitutional: denies: chills, fever Eyes: reports: no symptoms reported Respiratory: denies: cough, wheezing Gastrointestinal: reports: constipation (as reported from ED visit lastnight). denies: diarrhea, vomiting Genitourinary: reports: no symptoms reported Integumentary: reports: no symptoms reported Neurological: reports: other (decreased responsiveness.) Psychiatric: reports: no symptoms reported Endocrine: reports: no symptoms reported Hematologic/Lymphatic: reports: no symptoms reported Allergic/Immunologic: reports: no symptoms reported All Other Systems: Reviewed and Negative Past History - Adult - PAST MEDICAL HISTORY-ADULT Review of Records: reports: Old Records Reviewed, Nursing Assessment Review, Medications Reviewed, Social history reviewed & non-contributory. Major Childhood Illnesses: reports: other (MR) Cardiovascular: reports: cardiac disease, A-Fib, CHF, HTN, hyperlipidemia, pacemaker Respiratory: reports: asthma, COPD Gastrointestinal: reports: denies history Obstetrical/Gynecological: reports: denies history Genitourinary: reports: kidney disease Musculoskeletal: reports: denies history Neurological: reports: cognitive dysfunction (MR), Seizures/Epilepsy Psychiatric: reports: anxiety, bipolar Endocrine/Immune: reports: thyroid disorder Other Conditions: reports: denies history - PRIOR SURGERIES/PROCEDURES Surgical/Procedure History: reports: pacemaker, hernia repair, other (partial kidney) - IMMUNIZATION STATUS Childhood Immunizations: See Nurse Assessment Flu Vaccine: See Nurse Assessment - FAMILY HISTORY Family History: reviewed, not pertinent - SOCIAL HISTORY Smoking: denies, non-smoker Substance Use: none/never Alcohol Use Frequency: never Living Situation: care facility Physical Exam- Neurological - Physical Exam-Neuro Initial Vital Signs Reviewed: Yes General Appearance: obese, lethargic, slow to respond Cardiovascular: regular rate, rhythm Abdominal Exam: normal bowel sounds, non tender, 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 Exam: other (unable to access) Motor/Sensory: other (unable to access) Neurologic: other (unable to access) Integumentary: normal color, warm/dry Psych/Mental Status: other (pt is awake, but unresponsive) - Glascow Coma Scale Best Eye Response: (3) open to voice Best Verbal Response: (1) no verbal response Best Motor Response: (5) localizes to pain Progress - PLAN OF CARE/RESULTS Progress/Plan/Lab Results: Orders Category Date Time Status Isabel Cath Insertion ORDERED Care 02/21/19 01:11 Completed CHEST-PORTABLE [RAD] Stat Exams 02/21/19 00:22 Completed ABG [RESP] Routine Lab 02/20/19 23:59 Received CBC WITH DIFF [HEME] Stat Lab 02/20/19 00:04 Completed CK PROFILE [SP CHEM] Stat Lab 02/21/19 00:04 Completed CMP [COMPREHENSIVE METABOLIC PANEL] [CHEM] Stat Lab 02/21/19 00:04 Completed I-STAT 8 [RESP] Routine Lab 02/21/19 00:13 Completed TROPONIN T Stat Lab 02/21/19 00:[address] W/POSS RFLX CULT [URINALYSIS] Stat Lab 02/21/19 00:19 Completed BIPAP Stat Oth 02/21/19 01:00 Active EKG [EKG] Routine Ther 02/21/19 00:00 Ordered Transfer/Admit Order [TRANSFER] Routine Transfer 02/21/19 00:37 Completed Result Diagrams: 02/23/19 05:19 02/23/19 05:19 - EKG 1 Time of EKG reading by physician:: 00:42 EKG Read and Signed by:: Fredy Yousif EKG Interpretation (*Must complete 3 of following elements*): Abnormal Rate: 99 Rhythm: ventricular paced QRS: LBB NE Interval: prolonged ST Wave: non-specific ST changes Departure - Departure Date of Disposition Decision: 02/21/19 Time of Disposition Decision: 01:59 DIAGNOSIS: Altered mental status, Mental retardation, idiopathic, Hypoventilation, Seizure disorder Disposition: ADMITTED INPATIENT 09 Certified Medical Emergency: Emergent Condition: Stable - Critical Care Note This patient required my direct & personal management of CC.: No Attestation - Physician/ LUCIANA Attestation Patient care was provided by Advanced Practice Provider:: No The physician spent face to face time with patient:: Yes Advanced Practice Provider documentation review:: Supervising physician onsite and consulted in the evaluation and care of this patient. The physician did have a face to face encounter with the patient. This chart was documented by the indicated scribe, (Rebecca Crum Scribe) and accurately reflects the services I performed and decisions made by me, Fredy Yousif MD, as attested by the provider's signature.
[2019-02-24] MEDS: XOPENEX NEB INH SCH ×3 (03:07→11:17)
[2019-02-24] MEDS: SYNTHROID PO SCH ×4 (04:30→07:24)
[2019-02-24] MEDS: PRILOSEC PO SCH ×2 (04:30→07:24)
[2019-02-24 07:20] VITALS: BP 110/78
[2019-02-24] MEDS: SYMBICORT 160/4.5 MICROGM INHALER INH SCH (07:30)
[2019-02-24 07:56] LABS: BASO# 0.01 X1000 (0.0-0.2); BASO% 0.1 % (0.0-0.8); EOS# 0.16 X1000 (0.0-0.7); IMM GRAN# 0.07 X1000 (0.0-0.04); IMM GRAN% 0.9 % (0.0-0.5); LYMPH# 1.48 X1000 (1.2-3.4); LYMPH% 18.6 % (20.5-51.1); MCH 29.2 PG (27-31); MCHC 31.4 g/dL (33-37); MCV 92.8 FL (81-99); MONO% 11.3 % (1.7-9.3); MPV 11.3 FL (7.4-10.4); NEUT# 5.32 X1000 (1.4-6.5); NEUT% 67.1 % (42.2-75.2); PLT 180 X1000 (130-400); RBC 3.77 XMIL (4.7-6.1); RDW 15.8 % (11.5-14.5); WBC 7.94 X1000 (4.8-10.8)
[2019-02-24 08:12] LABS: CALCIUM 8.3 mg/dL (8.8-10.2); CREATININE 1.5 mg/dL (0.7-1.2)
[2019-02-24] MEDS: MIRALAX PO SCH (09:07)
[2019-02-24] MEDS: SEROQUEL PO SCH (09:07)
[2019-02-24] MEDS: AMITIZA PO SCH (09:08)
[2019-02-24] MEDS: THERA M PLUS PO SCH (09:08)
[2019-02-24] MEDS: LASIX PO SCH (09:08)
[2019-02-24] MEDS: ICOSAPENT ETHYL PO SCH (09:08)
[2019-02-24] MEDS: LOPRESSOR PO SCH (09:08)
[2019-02-24] MEDS: FLOMAX PO SCH (09:08)
[2019-02-24] MEDS: ZYLOPRIM PO SCH (09:08)
[2019-02-24] MEDS ORDERED: DEPAKOTE ER PO SCH (21:00)
--- NOTE | 2019-02-24 21:14 | DISCHARGE SUMMARY ---
ADMISSION DATE: 02/21/2019 DISCHARGE DATE: 02/24/2019 ADMISSION DIAGNOSIS: 1. Acute on chronic hypoxemic, hypercapnic respiratory failure. 2. Atrial fibrillation with dual-chamber pacemaker. 3. Chronic obstructive pulmonary disease, no exacerbation. 4. Profound mental disability with developmental delay. 5. Seizure disorder. 6. Hypertension. 7. Hypothyroidism. DISCHARGE DIAGNOSES: 1. Acute on chronic hypoxemic, hypercapnic respiratory failure. 2. Acute kidney injury, resolved. 3. Atrial fibrillation with pacemaker. 4. Chronic obstructive pulmonary disease, no exacerbation. 5. Mental disability with developmental delay. 6. Seizure disorder, stable. 7. Hypertension, stable, ranging in between 90s and 100s on systolic. 8. Hypothyroidism, continuing on Synthroid. 9. Deep venous thrombosis prophylaxis on home Eliquis. CONSULTATIONS: None. SURGERIES OR PROCEDURES: None. HOSPITAL COURSE: On 02/21/2019, Mr. Kana De Leon, a 58-year-old male with a medical history of being developmentally delayed, history of COPD who was recently seen by our service for acute exacerbation of COPD, currently living at the [facility]. He re- presented with an acute hypoxemia along with hypercarbia, and due to the developmental disability, he was unable to provide much information. He was a little lethargic on presentation. O2 saturation on room air was in the 60s. He was started on oxygen, placed on BiPAP, and transferred to the ICU. Chest x-ray had some pulmonary edema which had improved since the prior admission. No fever. Not hypotensive. White blood cells were normal. He is supposed to be on home oxygen. I believe he is on and off of it at home. He remained here for a few days. Had a renal ultrasound because he developed some acute kidney injury. Showed multiple small renal cysts that were consistent with known polycystic kidney disease. The hypoxia was easily remedied, except for he frequently refused to wear it. Otherwise he is stable and will be discharged. His vital signs are stable as well. DISCHARGE VITAL SIGNS: Temperature 97.5, heart rate 69, respiratory rate 20, blood pressure 110/78, O2 saturation 98% on 2L nasal cannula. LABORATORY DATA: White blood cells 7000, hemoglobin 11, hematocrit 35, platelet count 180. Sodium 138, potassium 5.0, BUN 27, creatinine 1.5, glucose 84, calcium 8.3, magnesium 2.0. PERTINENT IMAGING: ON 02/21/2019, chest x-ray showed improvement in pulmonary edema. On - 02/22/2019, renal ultrasound showed multiple small renal cysts consistent with known polycystic kidney disease and mildly atrophic right kidney. DISCHARGE MEDICATIONS: 1. Depakote extended release 1000 mg p.o. nightly. 2. Klonopin 2 mg p.o. nightly. 3. Singulair 10 mg p.o. nightly. 4. Zocor 10 mg p.o. nightly. 5. Amitiza 24 mcg p.o. twice daily. 6. Dextran 70 hypromellose in both eyes. 7. Multivitamin once daily. 8. Eliquis 5 mg p.o. twice daily. 9. Finasteride 5 mg p.o. nightly. 10.Flomax 0.4 mg p.o. daily. 11.Synthroid 100 mcg p.o. daily. 12.MiraLAX 17 grams p.o. twice daily. 13.Omeprazole 20 mg p.o. daily. 14.Azelastine 0.05% in both eyes daily. 15.Seroquel 300 mg p.o. t.i.d. 16.Docusate 240 mg p.o. every evening. 17.Budesonide. 18.Formoterol inhaler 2 puffs inhaled twice daily. 19.Vascepa 2 caps p.o. twice daily. 20.Zyloprim 300 mg p.o. daily. 21.Cardizem 120 mg p.o. daily. 22.Cefuroxime 500 mg p.o. twice daily for 10 days. 23.Doxycycline 100 mg p.o. twice daily, also for 10 days. 24.Lasix 40 mg p.o. daily. 25.Lopressor 100 mg p.o. twice daily. DISCHARGE DIET: Heart healthy. DISCHARGE ACTIVITY: As tolerated. DISCHARGE INSTRUCTIONS: If your condition changes, contact your physician and/or return to the emergency department. Changes may include but are not limited to shortness of breath, increased fatigue, excessive bleeding, unexplained weight loss or gain, unimaginable pain, or signs or symptoms of infection. PHYSICIAN FOLLOWUP: None. DISCHARGE DISPOSITION: Home. Dictated by MELISSA Kapoor for Juan Jose Bhatt MD Addendum: Patient seen and examined by myself. Agree with MELISSA note. It reflects my assessment and plan. Patient is being discharged from hospital in stable condition. Will be seen by primary care doctor in a week. cc: MELISSA Kapoor MD MTDD
== END 2019-02-24 11:53 | disposition home or self-care (01) | DRG 189 ==
LOC: P.ED 23:47 → P.ICU 02-21 01:13 → SUATTDRO 02-21 01:13 → P.MEDSURG 02-23 12:30
PROVIDERS: ATTEND Internal Medicine
CPT/HCPCS: 36415; 51702; 71010; 71045; 76770; 80048; 80053; 81001; 82330; 82550; 82805; 82947; 82948; 83735; 83880; 84132; 84295; 84484; 85014; 85018; 85025; 87088; 93005; 94640; 94760; 99285; A9270; J0696; J2930; J7030; J7040; S0138; XXXXX

== ENCOUNTER 2019-03-21 06:14 | Inpatient (IN) ==
[~2019-03-21 06:14] MED LIST changes: -ASPIRIN ONE; +DUONEB (A & A) INH ONE; +SOLU-MEDROL IV ONE
[2019-03-21 06:30] LABS: BLOOD TYPE ARTERIAL; HCO3-(ACT) 34.3 mmoll (20.0-26.0); METHB 1.3 % (0.0-1.5); O2(CT) 16.8 mL/dL (15.0-23.0); O2HB 95.6 % (95.0-99.0); PO2(98.6) 241 mmHg (60-100); SAMPLE BLOOD; SAO2 99.5 % (95.0-100.0); THB 12.1 g/dL (11.5-17.4)
[2019-03-21 06:32] LABS: MODALITY NRB; PCO2(98.6) 85 mmHg (35-45)
--- NOTE | 2019-03-21 06:35 | PROVIDER DOCUMENTATION ---
HPI-General Adult - General Chief Complaint: Shortness of Breath Stated Complaint: Respiratory Distress Time Seen by Provider: 03/21/19 06:30 Source: EMS, other (facility provider) Allergies/Adverse Reactions: Patient Allergies Allergy/AdvReac Type Severity Reaction Status Date / Time sulfacetamide Allergy Intermediate EYE Verified 03/21/19 07:04 SWELLING Iodinated Contrast- Oral and Allergy Unknown Unknown Verified 03/21/19 07:04 IV Dye NSAIDS (Non-Steroidal AdvReac Unknown Verified 03/21/19 07:04 Anti-Inflamma Home Medications: Home Medication List Medication Instructions Recorded Confirmed Last Taken Type Allopurinol [Zyloprim] 300 mg PO DAILY 01/28/17 02/21/19 03/17/18 07:00 History Divalproex E.r. [Depakote ER] 2 tab PO QHS 01/28/17 02/21/19 03/16/18 21:00 History Finasteride 5 mg PO HS 01/28/17 02/21/19 03/16/18 19:00 History Montelukast [Singulair] 10 mg PO QHS 01/28/17 02/21/19 03/16/18 19:00 History Multivitamins/Minerals [Centrum 1 each PO DAILY 01/28/17 02/21/19 03/17/18 07:00 History Tablet] Omeprazole 20 mg PO DAILY@0700 01/28/17 02/21/19 03/17/18 07:00 History Polyethylene Glycol 3350 [Miralax] 17 gm PO BID 01/28/17 02/21/19 03/16/18 21:00 History Quetiapine [Seroquel] 300 mg PO TID@0900,1500,2100 01/28/17 02/21/19 03/17/18 07:00 History SIMVAstatin [Zocor] 10 mg PO QHS 01/28/17 02/21/19 03/16/18 19:00 History Tamsulosin [Flomax] 0.4 mg PO DAILY 01/28/17 02/21/19 03/17/18 07:00 History Furosemide [Lasix] 40 mg PO DAILY 30 Days #30 tab 11/22/18 02/21/19 Unknown Rx Apixaban [Eliquis] 5 mg PO BID 01/30/19 02/21/19 Unknown History Clonazepam [Klonopin] 2 mg PO QHS 01/30/19 02/21/19 Unknown History Icosapent Ethyl [Vascepa] 2 cap PO BID 01/30/19 02/21/19 Unknown History Levothyroxine Sodium 175 mcg PO DAILY@0600 01/30/19 02/21/19 Unknown History Lubiprostone [Amitiza] 24 mcg PO BID 01/30/19 02/21/19 Unknown History Metoprolol Tartrate [Lopressor] 100 mg PO BID #60 tab 02/04/19 02/21/19 Unknown Rx Azelastine 0.05% Oph Solution 1 drp BOTH EYES BID 02/21/19 02/21/19 Unknown History [Optivar 0.05% Oph Solution] Budesonide/Formoterol Inhaler 2 puff INH RTBID 02/21/19 02/21/19 Unknown History [Symbicort 160/4.5 Microgm Inhaler] Dextran 70/Hypromellose 1 ea OPHTHALMIC (EYE) 4XDAY 02/21/19 02/21/19 Unknown History [Artificial Tears] Docusate Ca [Surfak] 240 mg PO EVERY OTHER DAY 02/21/19 02/21/19 Unknown History Cefuroxime Axetil [Cefuroxime] 500 mg PO BID #20 tab 02/24/19 Unknown Rx Diltiazem C.d. [Cardizem C.d] 120 mg PO DAILY #60 cap 02/24/19 Unknown Rx Doxycycline 100 mg PO BID #20 tab 02/24/19 Unknown Rx Levothyroxine [Synthroid] 100 microgm PO DAILY #60 tab 02/24/19 Unknown Rx - History of Present Illness -Gen Adult Nature of Presenting Problems: Pt presents with sob, pmh of COPD, has been here several times before for the same, got sob last night, O2 sat dropped to high 80s, pt is MR with limited verbal capability, [facility], facility staff member reports increasing weakness, pt is lying in bed in no acute respiratory distress. Location of Pain/Injury: reports: none Pain Radiation: reports: no radiation Quality of Pain: reports: none Severity: reports: moderate Onset/Duration: reports: 4-6 hours ago Timing: reports: still present Context/Activities at Onset: reports: none Modifying Factors: improves with: nothing Associated Symptoms: reports: shortness of breath Similar Symptoms Previously?: Yes Recently seen or treated by another doctor?: No Review of Systems - Adult - REVIEW OF SYSTEMS - ADULT Constitutional: reports: no symptoms reported Eyes: reports: no symptoms reported Ears, Nose, Mouth & Throat: reports: no symptoms reported Cardiovascular: reports: no symptoms reported Respiratory: reports: see HPI Gastrointestinal: reports: no symptoms reported Genitourinary: reports: no symptoms reported Musculoskeletal: reports: no symptoms reported Integumentary: reports: no symptoms reported Neurological: reports: no symptoms reported Psychiatric: reports: no symptoms reported Endocrine: reports: no symptoms reported Hematologic/Lymphatic: reports: no symptoms reported Allergic/Immunologic: reports: no symptoms reported All Other Systems: Reviewed and Negative Past History - Adult - PAST MEDICAL HISTORY-ADULT Review of Records: reports: Old Records Reviewed, Nursing Assessment Review, Medications Reviewed, Social history reviewed & non-contributory. Major Childhood Illnesses: reports: other (MR) Cardiovascular: reports: cardiac disease, A-Fib, CHF, HTN, hyperlipidemia, pacemaker Respiratory: reports: asthma, COPD Gastrointestinal: reports: denies history Obstetrical/Gynecological: reports: denies history Genitourinary: reports: kidney disease Musculoskeletal: reports: denies history Neurological: reports: cognitive dysfunction (MR), Seizures/Epilepsy Psychiatric: reports: anxiety, bipolar Endocrine/Immune: reports: thyroid disorder Other Conditions: reports: denies history - PRIOR SURGERIES/PROCEDURES Surgical/Procedure History: reports: pacemaker, hernia repair, other (partial kidney) - IMMUNIZATION STATUS Childhood Immunizations: See Nurse Assessment Flu Vaccine: See Nurse Assessment - FAMILY HISTORY Family History: reviewed, not pertinent Physical Exam-General - PHYSICAL EXAM-ADULT Initial Vital Signs Reviewed: Yes - CONSTITUTIONAL General Appearance: appears well - EYES Eyes: PERRL/EOMI - HEAD, EARS, NOSE, MOUTH & THROAT HENMT: normal ENT inspection - NECK Neck: normal inspection - RESPIRATORY Respiratory: respiratory distress, accessory muscle use - CARDIOVASCULAR Cardiovascular: tachycardia - GASTROINTESTINAL (ABDOMEN) Abdominal Exam: non tender, soft - LYMPHATIC Lymphatic: no adenopathy - MUSCULOSKELETAL Back Exam: normal inspection Extremity: normal range of motion - SKIN Integumentary: normal color - NEUROLOGIC Neurologic: grossly normal - PSYCHIATRIC Psych/Mental Status: normal mood/affect Progress - PLAN OF CARE/RESULTS Progress/Plan/Lab Results: Vital Signs - 8 hr 03/21/19 06:14 Pulse Rate 81 Respiratory Rate 26 H Blood Pressure 135/86 O2 Sat by Pulse Oximetry 100 Orders Category Date Time Status Nursing- Obtain EKG ONCE Care 03/21/19 06:11 Active CHEST-1 VIEW [RAD] Stat Exams 03/21/19 06:11 Ordered ABG [RESP] Routine Lab 03/21/19 06:11 Ordered CBC WITH ELECTRONIC DIFF [HEME] Stat Lab 03/21/19 06:11 Uncollected COMPREHENSIVE METABOLIC PANEL [CHEM] Stat Lab 03/21/19 06:11 Uncollected PRO B-NATRIURETIC PEPTIDE Stat Lab 03/21/19 06:11 Uncollected TROPONIN T Stat Lab 03/21/19 06:18 Received Albuterol 2.5MG/Ipratrop 0.5MG [Duoneb (A & A)] Med 03/21/19 06:12 Discontinued 3 ml INH NOW ONE Methylprednisolone Sod Succ [Solu-Medrol] Med 03/21/19 06:12 Discontinued 125 mg IV NOW ONE Aerosol Treatments Routine Oth 03/21/19 06:12 Active Aerosol Treatments Stat Oth 03/21/19 06:12 Active EKG [EKG] Stat Ther 03/21/19 06:11 Ordered Result Diagrams: 03/21/19 06:08 03/21/19 06:08 - EKG 1 Time of EKG reading by physician:: 07:00 EKG Read and Signed by:: Gagan Skinner Rate: 76 Rhythm: pacemaker - CONSULTS/PCP/HOSPITALIST Notification #1 *Consult/PCP/Hospitalist*: Dr Gilbert, hospitalist Time Discussed: 07:35 Reason/Comments: admit to ICU Consult Disposition: Admit Departure - Departure Date of Disposition Decision: 03/21/19 Time of Disposition Decision: 07:39 DIAGNOSIS: Hypercarbia, Mental retardation, idiopathic, Hyperkalemia CHF (congestive heart failure) Qualifiers: Heart failure type: unspecified Heart failure chronicity: acute on chronic Qualified Code(s): I50.9 - Heart failure, unspecified Acute exacerbation of CHF (congestive heart failure) Qualifiers: Heart failure type: unspecified Qualified Code(s): I50.9 - Heart failure, unspecified Altered mental status Qualifiers: Altered mental status type: unspecified Qualified Code(s): R41.82 - Altered mental status, unspecified Disposition: ADMITTED INPATIENT 09 Certified Medical Emergency: Emergent Condition: Stable Referrals and Follow-Ups: None,PCP [Primary Care Provider] - - Critical Care Note This patient required my direct & personal management of CC.: Yes Total Time (mins): 75 Critical Care Statement: This patient required my direct personal management to treat or rule out processes, the absence of which, could potentiallly result in sudden, clinically significant life or limb threatening deterioration. Attestation - Physician/ LUCIANA Attestation Patient care was provided by Advanced Practice Provider:: No The physician spent face to face time with patient:: Yes Advanced Practice Provider documentation review:: Supervising physician onsite and consulted in the evaluation and care of this patient. The physician did have a face to face encounter with the patient.
[2019-03-21 07:06] LABS: BASO# 0.01 X1000 (0.0-0.2); BASO% 0.1 % (0.0-0.8); EOS# 0.07 X1000 (0.0-0.7); EOS% 0.9 % (0.0-10.0); HEMATOCRIT 36.5 % (42.0-52.0); HEMOGLOBIN 11.4 g/dL (14.0-18.0); IMM GRAN# 0.06 X1000 (0.0-0.04); IMM GRAN% 0.8 % (0.0-0.5); LYMPH# 0.75 X1000 (1.2-3.4); LYMPH% 9.4 % (20.5-51.1); MCH 29.6 PG (27-31); MCHC 31.2 g/dL (33-37); MCV 94.8 FL (81-99); MONO# 0.85 X1000 (0.11-0.59); MONO% 10.7 % (1.7-9.3); MPV 12.7 FL (7.4-10.4); NEUT# 6.24 X1000 (1.4-6.5); NEUT% 78.1 % (42.2-75.2); PLT 168 X1000 (130-400); RBC 3.85 XMIL (4.7-6.1); RDW 15.1 % (11.5-14.5); WBC 7.98 X1000 (4.8-10.8)
[2019-03-21] MEDS ORDERED: LASIX IV ONE (07:16)
--- NOTE | 2019-03-21 07:23 | Diag Imaging Result Doc PS360 ---
CHEST-1 VIEW - 03/21/2019 INDICATION: sob COMPARISON: 02/21/2019 FINDINGS: Stable pacemaker. Heart size and pulmonary vascularity is grossly normal. Stable low lung volumes with right hemidiaphragm elevation. No infiltrates or edema. IMPRESSION: No acute disease. Electronically signed by Andrew Reed 03/21/2019 7:21 AM
[2019-03-21 07:28] LABS: AGAP 10; ALBUMIN 3.5 g/dL (3.5-5.0); ALKALINE PHOSPHATASE 64 U/L (32-122); BUN 20 mg/dL (8-22); CALCIUM 8.7 mg/dL (8.8-10.2); CHLORIDE 93 mmol/L (98-107); COSMO 274; CREATININE 1.1 mg/dL (0.7-1.2); ESTIMATED GFR > 60; GLUCOSE 123 mg/dL (70-104); GOT 30 U/L (10-34); GPT 7 U/L (10-44); POTASSIUM 5.8 mmol/L (3.5-5.1); SODIUM 135 mmol/L (136-145); TCO2 32 mmol/L (25-35); TOTAL PROTEIN 6.5 g/dL (6.3-8.3)
[2019-03-21] MEDS ORDERED: ALBUTEROL NEB INH ONE (07:35)
[2019-03-21] MEDS ORDERED: D50W SYRINGE IV ONE (07:36)
[2019-03-21] MEDS ORDERED: HUMULIN R (PARKWAY) IV ONE (07:36)
[2019-03-21] MEDS ORDERED: SODIUM BICARBONATE 8.4% IV PUSH ONE (07:37)
[2019-03-21 08:44] LABS: BLOOD TYPE ARTERIAL; SAMPLE BLOOD
[2019-03-21 08:45] LABS: BE 15.3 mmoll (-3.0-3.0); HCO3-(ACT) 36.8 mmoll (20.0-26.0); METHB 1.1 % (0.0-1.5); O2(CT) 16.9 mL/dL (15.0-23.0); PO2(98.6) 88 mmHg (60-100); SAO2 97.8 % (95.0-100.0); SRATE 25 BPM; THB 12.7 g/dL (11.5-17.4); pH(98.6) 7.35 (7.35-7.45)
[2019-03-21 08:46] LABS: ALLEN TEST YES; MODALITY BI PAP
[2019-03-21 08:47] LABS: PCO2(98.6) 81 mmHg (35-45)
[2019-03-21 10:08] LABS: BILIRUBIN URINE NEGATIVE (NEGATIVE); BLOOD URINE NEGATIVE (NEGATIVE); GLUCOSE URINE NEGATIVE (NEGATIVE); KETONE URINE NEGATIVE (NEGATIVE); LEUKOCYTES URINE NEGATIVE (NEGATIVE); NITRITE URINE NEGATIVE (NEGATIVE); PROTEIN URINE NEGATIVE (NEGATIVE); SP GRAVITY URINE 1.015; UROBILINOGEN URINE NORMAL
[2019-03-21 10:09] LABS: CLARITY CLEAR (CLEAR); COLOR YELLOW
[2019-03-21 10:15] LABS: URINE EPITHELIAL CELLS <10 /HPF (<10); URINE SOURCE CATH
[2019-03-21] MEDS ORDERED: DUONEB (A & A) INH PRN (10:57)
[2019-03-21] MEDS ORDERED: DUONEB (A & A) INH SCH (11:30)
[2019-03-21] MEDS: HUMALOG (PARKWAY) SUBQ SCH ×3 (12:00→21:22)
[2019-03-21] MEDS: DUONEB (A & A) INH SCH ×4 (12:00→23:25)
[2019-03-21] MEDS: LOVENOX SUBQ SCH ×2 (12:01→21:30)
--- NOTE | 2019-03-21 12:52 | EKG Report ---
Test Performed on : 03/21/2019 06:58:53 AM Test Reason : sob Blood Pressure : / mmHG Vent. Rate : 076 BPM Atrial Rate : 076 BPM P-R Int : 204 ms QRS Dur : 184 ms QT Int : 432 ms P-R-T Axes : 057 -83 087 degrees QTc Int : 486 ms Atrial-sensed ventricular-paced rhythm Abnormal ECG When compared with ECG of 13-FEB-2019 08:56, Electronic ventricular pacemaker has replaced Sinus rhythm. Unconfirmed Result
[2019-03-21 16:43] LABS: ALLEN TEST YES
--- NOTE | 2019-03-21 16:45 | HISTORY AND PHYSICAL ---
CHIEF COMPLAINT: Low O2 saturation and respiratory distress. HISTORY OF PRESENT ILLNESS: This is a 59-year-old gentleman who is well known to our service having multiple admissions for the same. He has a history of COPD. He is developmentally delayed. He does live in a long-term. He presented to the emergency room via EMS from the long-term after being noted to be lethargic, had a little bit of increase in work of breathing and O2 saturations were reportedly in the 80s. On arrival to the emergency room, O2 saturations were 100% on a non-rebreather with respiratory rate 26 to 28. He was placed on BiPAP. In the emergency room at 35% O2, respiratory rate at the time of my exam, he is breathing 22 a minute. PAST MEDICAL HISTORY: 1. Chronic obstructive pulmonary disease with multiple admissions for exacerbation. 2. Atrial fibrillation with pacemaker. 3. Chronic hypoxic respiratory failure. 4. Hypertension. 5. Hyperlipidemia. 6. Hypothyroid. 7. Seizure disorder. 8. History of gastrointestinal bleed. 9. Profound mental retardation and developmental delay. PAST SURGICAL HISTORY: Pacemaker placement, incisional hernia repair, partial right nephrectomy, adenoidectomy, and cataract surgery. SOCIAL HISTORY: He lives at the [place] for [employer] disability. There is no tobacco, alcohol or illicit drug use. REVIEW OF SYSTEMS: Unable to obtain from the patient due to his mental status. ALLERGIES: NSAIDs and oral and IV dye with unknown reactions. Sulfacetamide with eye swelling. HOME MEDICATIONS: A list will be obtained by the nursing staff and once verified will review and restart as appropriate. LABORATORY: WBC is 7.9 with hemoglobin 11.4, hematocrit 36.5, and platelets of 168,000. ABGs pH is 7.3 with a pCO2 of 81, PO2 of 88, and bicarb of 36.8. This is on BiPAP at 35% with an IE ratio 20:8. Chemistry: Sodium is 135, potassium 5.8, BUN 20, creatinine 1.1 with a glucose of 123. Troponin's are negative on multiple occasions. Urinalysis is essentially negative. Chest x-ray revealed no acute disease. ASSESSMENT AND PLAN: 1. Chronic obstructive pulmonary disease acute exacerbation. 2. Acute hypercarbic respiratory failure. 3. Hyperkalemia. Trend labs, gentle hydration. Hold potassium containing medications. 4. Acute on chronic hypoxic and hypercapnic respiratory failure. Continue on Bipap 5. Mental retardation aware. 6. Seizure disorder, stable. 7. Hypertension, stable. 8. Hypothyroid, stable. 9. History of chronic anticoagulation secondary to atrial fibrillation. He is somewhat lethargic. We will give Lovenox 1 mg/kg b.i.d. Once the patient is more alert and taking oral medications safely, we will convert back over to Eliquis. PLAN: The patient has been admitted to ICU. He is on telemetry which we will continue. We will identify his home medications and continue as appropriate. DuoNebs q4h with q2h prn Further treatments pending discussion with Dr Gilbert and hospital course. Dictated by MELISSA Meyers for Kyle Gilbert MD cc: MELISSA Meyers MD MTDD
[2019-03-21] MEDS: ZOCOR PO SCH (21:20)
[2019-03-22] MEDS: DUONEB (A & A) INH SCH ×6 (03:05→22:30)
[2019-03-22 05:41] LABS: HEMATOCRIT 34.3 % (42.0-52.0); IMM GRAN# 0.02 X1000 (0.0-0.04); IMM GRAN% 0.2 % (0.0-0.5); LYMPH% 9.9 % (20.5-51.1); MCH 29.5 PG (27-31); MCHC 32.1 g/dL (33-37); MONO# 0.97 X1000 (0.11-0.59); MONO% 10.6 % (1.7-9.3); MPV 12.1 FL (7.4-10.4); NEUT# 7.22 X1000 (1.4-6.5); NEUT% 79.3 % (42.2-75.2); PLT 162 X1000 (130-400); RBC 3.73 XMIL (4.7-6.1); RDW 14.9 % (11.5-14.5); WBC 9.11 X1000 (4.8-10.8)
[2019-03-22 06:07] LABS: ALBUMIN 3.3 g/dL (3.5-5.0); CALCIUM 8.8 mg/dL (8.8-10.2); CREATININE 1.8 mg/dL (0.7-1.2); MAGNESIUM 1.5 mg/dL (1.5-2.7); POTASSIUM 4.3 mmol/L (3.5-5.1); TOTAL BILIRUBIN 0.3 mg/dL (0.20-1.00); TOTAL PROTEIN 6.2 g/dL (6.3-8.3)
[2019-03-22] MEDS: HUMALOG (PARKWAY) SUBQ SCH ×4 (07:03→20:46)
[2019-03-22] MEDS: FLOMAX PO SCH (09:01)
--- NOTE | 2019-03-22 09:16 | HISTORY AND PHYSICAL ---
ADDENDUM: Patient seen and examined by myself. Full note dictated and discussed with nurse practitioner. Patient presented to the hospital, as he has in the past, in acute on chronic hypercapnic respiratory failure. We will place him on BiPAP. He does have a history of CPAP at home but apparently is somewhat noncompliant with this. Hopefully, he will be more compliant. We will follow his clinical course. cc: Kyle Gilbert MD
[2019-03-22] MEDS: LOVENOX SUBQ SCH ×2 (10:56→21:46)
--- NOTE | 2019-03-22 19:34 | PROGRESS NOTE ---
DATE: 03/22/2019 SUBJECTIVE: Patient is much more alert. He appears back to his baseline. He is once again talking about the white truck. PHYSICAL EXAMINATION: Temp 98, pulse 100, respiratory 18, BP 128/82.General: Patient is in no current respiratory distress. He is awake. He is very vocal. He appears to his baseline mental status. HEENT: Normocephalic. Neck: Supple. Cardiovascular: Regular rate. Chest: Clear, nonlabored. Abdomen: Soft, nondistended. Extremities: Moves all extremities. ASSESSMENT: 1. Acute on chronic hypercapnic respiratory failure appears back to his baseline. Patient has CPAP at home, but frequently stops wearing it. Once placing back on BiPAP, his symptoms have resolved and he is back to his baseline mental status. 2. Chronic obstructive pulmonary disease. 3. History of seizure disorder. 4. Mental retardation. This has not changed. 5. Atrial fibrillation with pacemaker. 6. Hypertension. 7. Hyperlipidemia. PLAN: We will continue patient in the hospital. We will keep him in the ICU tonight so staff can watch him on BiPAP. Expect that he will remain stable as long as he is on his BiPAP. Unfortunately, at the alf, this appears to be difficult to keep his CPAP on at night. We will continue to follow. cc: Kyle Gilbert MD
[2019-03-23] MEDS: DUONEB (A & A) INH SCH ×6 (03:06→23:05)
[2019-03-23] MEDS: HUMALOG (PARKWAY) SUBQ SCH ×4 (06:05→21:15)
[2019-03-23 06:22] LABS: HEMOGLOBIN 12.3 g/dL (14.0-18.0); MCH 29.1 PG (27-31); MCHC 32.4 g/dL (33-37); MCV 89.8 FL (81-99); MPV 12.2 FL (7.4-10.4); RBC 4.23 XMIL (4.7-6.1); RDW 15.2 % (11.5-14.5); WBC 9.51 X1000 (4.8-10.8)
[2019-03-23 06:40] LABS: ALBUMIN 3.5 g/dL (3.5-5.0); CALCIUM 9.1 mg/dL (8.8-10.2); CREATININE 1.4 mg/dL (0.7-1.2); MAGNESIUM 1.7 mg/dL (1.5-2.7); POTASSIUM 3.7 mmol/L (3.5-5.1); TOTAL BILIRUBIN 0.4 mg/dL (0.20-1.00); TOTAL PROTEIN 6.4 g/dL (6.3-8.3)
[2019-03-23] MEDS: ZOFRAN IV PRN ×2 (09:15→14:55)
[2019-03-23] MEDS: LOVENOX SUBQ SCH ×2 (09:15→21:19)
--- NOTE | 2019-03-23 11:33 | Diag Imaging Result Doc PS360 ---
EXAM: ABDOMEN FLAT/UPRIGHT HISTORY: Abd distention,N/V TECHNIQUE: Flat and upright, six views COMPARISON: 01/30/2019 FINDINGS: There are multiple air distended loops of bowel measuring over 10 cm. There is stool in the right side of the colon and in the rectum. Left mid abdominal calcification is unchanged. IMPRESSION: [place] distended bowel loops which are actually slightly less pronounced than on the prior study. Electronically signed by Sergei Dickerson 03/23/2019 11:31 AM
[2019-03-23 13:23] LABS: BLOOD TYPE ARTERIAL; HCO3-(ACT) 38.1 mmoll (20.0-26.0); METHB 1.4 % (0.0-1.5); O2(CT) 18.1 mL/dL (15.0-23.0); O2HB 93.8 % (95.0-99.0); PO2(98.6) 84 mmHg (60-100); SAMPLE BLOOD; SAO2 97.7 % (95.0-100.0); THB 13.7 g/dL (11.5-17.4); pH(98.6) 7.49 (7.35-7.45)
[2019-03-23 13:26] LABS: PCO2(98.6) 57 mmHg (35-45)
[2019-03-23 13:27] LABS: ALLEN TEST YES; MODALITY CANNULA
--- NOTE | 2019-03-23 14:30 | PROGRESS NOTE ---
DATE: 03/23/2019 SUBJECTIVE: Patient, of course, is nonverbal. As per the staff from the [facility], his belly has being getting more and more distended, along with some diarrhea. OBJECTIVE: Vital signs: Temperature 97.7, heart rate 104, respiratory rate 20, blood pressure 138/86, O2 saturation 96% on 2 L nasal cannula. General Examination: This is a chronically ill appearing, 59-year-old male with a history of mental retardation, lying in bed, in no acute distress. Cardiovascular: S1 and S2 heard. No murmurs, gallops, or rubs. Regular rate and rhythm. Respiratory: Minimal coarse breath sounds noted in both pulmonary bases. Patient is not using any accessory muscles or having work of breathing. Abdomen: Soft. Nontender to palpation. Bowel sounds present. No organomegaly. Extremities: No clubbing, cyanosis, or edema. Peripheral pulses present in both legs. Neurological: Patient is alert and oriented x3. Moves 4 extremities. LABORATORY DATA: Reviewed. ASSESSMENT AND PLAN: 1. Acute on chronic hypercapnic respiratory failure. Clinically this patient is better, requiring 2 L of oxygen by nasal cannula and he is supposed to use BiPAP here in the hospital. We have checked ABG today and that has improved from pCO2 of 81 to pCO2 of 57 today. I think at this point the plan is to continue with the same management, in this case CPAP and BiPAP. 2. Chronic obstructive pulmonary disease. Patient is not in exacerbation. We will continue to monitor. 3. History of seizure disorder. Aware. 4. Mental retardation. Stable. 5. Atrial fibrillation with pacemaker. Aware. 6. Hypertension. Blood pressure is under control. We will continue with the same management. 7. Hyperlipidemia. Aware. 8. Disposition. I think at this point we will continue with the same management, in this case CPAP. Usually the patient tries to remove it and that is big problem for him, but at this point we will continue with the current management. cc: Juan Jose Bhatt MD
--- NOTE | 2019-03-23 15:26 | Diag Imaging Result Doc PS360 ---
EXAM: CT ABDOMEN/PELVIS W/O CONTRAST HISTORY: abd distention, N/V TECHNIQUE: CT abdomen and pelvis without contrast COMPARISON: 03/11/2018 FINDINGS: There is a tiny right pleural effusion. There are increased interstitial markings in the lower lungs. This is in a nodular appearance in the right lung base and is associated with several calcifications. The overall appearance is quite similar to the prior exam. There are many hyperdense renal lesions scattered throughout both kidneys similar to the prior study. No hydronephrosis. No calcified gallstones or adjacent inflammation. Normal liver, spleen, pancreas, and adrenal glands. Normal aorta. There is prominent stool in the proximal colon and rectum. The colon is distended with air. The sigmoid colon is also distended with air. No abscess. Normal appendix. A Isabel is in the urinary bladder. IMPRESSION: 1.Apparent scarring in the lung bases with a small right effusion 2.Constipation and fecal impaction with air distended colon 3.Polycystic kidney disease This exam was performed using automated exposure control, adjustment of mA or kV according to patient size, and/or use of iterative reconstruction technique. Electronically signed by Sergei Dickerson 03/23/2019 3:24 PM
[2019-03-23] MEDS ORDERED: ZOFRAN IV ONE (16:22)
[2019-03-23] MEDS ORDERED: FLEET ENEMA PR ONE (16:58)
--- NOTE | 2019-03-23 21:10 | EKG Report ---
Test Performed on : 03/23/2019 8:19:45 PM Test Reason : irregular rhythm on telemetry Blood Pressure : / mmHG Vent. Rate : 120 BPM Atrial Rate : 072 BPM P-R Int : 000 ms QRS Dur : 172 ms QT Int : 402 ms P-R-T Axes : 000 256 080 degrees QTc Int : 568 ms Ventricular-paced rhythm Abnormal ECG No previous ECGs available Confirmed by Fredy Yousif MD ([id number]) on 03/27/2019 7:32:14 AM
[2019-03-23] MEDS: ZOCOR PO SCH (21:19)
[2019-03-24] MEDS: DUONEB (A & A) INH SCH ×6 (03:50→22:35)
[2019-03-24 06:19] LABS: BE 15.2 mmoll (-3.0-3.0); BLOOD TYPE ARTERIAL; HCO3-(ACT) 36.7 mmoll (20.0-26.0); METHB 0.8 % (0.0-1.5); O2(CT) 18.8 mL/dL (15.0-23.0); O2HB 94.9 % (95.0-99.0); PO2(98.6) 99 mmHg (60-100); SAMPLE BLOOD; SAO2 98.2 % (95.0-100.0); pH(98.6) 7.49 (7.35-7.45)
[2019-03-24 06:21] LABS: ALLEN TEST NO; MODALITY CANNULA; PCO2(98.6) 54 mmHg (35-45)
[2019-03-24] MEDS: FLOMAX PO SCH (10:40)
[2019-03-24] MEDS: LOVENOX SUBQ SCH ×2 (10:41→21:05)
[2019-03-24] MEDS ORDERED: GOLYTELY PO ONE (10:46)
[2019-03-24] MEDS: MIRALAX PO SCH (10:47)
[2019-03-24] MEDS: HUMALOG (PARKWAY) SUBQ SCH ×3 (11:11→20:35)
--- NOTE | 2019-03-24 15:06 | PROGRESS NOTE ---
DATE: 03/24/2019 SUBJECTIVE: The patient is nonverbal. As per staff from [facility], he is feeling fine. His belly is still distended. OBJECTIVE: Vital Signs: Temperature 97.8 degrees, heart rate 117, blood pressure 159/91, O2 saturation 99% on 2 L nasal cannula. General: This is a chronically ill appearing, 59-year-old male lying in bed, in no acute distress. Cardiovascular: S1, S2 heard. No murmurs, gallops, or rubs. Regular rate and rhythm. Respiratory: Minimal coarse breath sounds noted in both pulmonary bases. Patient is not using any accessory muscles or having work of breathing. Abdomen: Soft. Nontender to palpation. Still distended but the same in comparing with yesterday. Bowel sounds present. No organomegaly. Extremities: No clubbing, cyanosis, or edema. Peripheral pulses present in both legs. Neurological: The patient has mental retardation since . He is awake. Mumbles some unintelligible words. Moves 4 extremities spontaneously. LABORATORY DATA: Reviewed. ASSESSMENT AND PLAN: 1. Acute on chronic hypercapnic respiratory failure after we started using BiPAP here in the hospital and making sure he was wearing the mask his CO2 is getting better, today it is 54. I think at this point patient is much more stable. We will continue with BiPAP at night and most likely will be able to discharge him tomorrow. 2. Chronic obstructive pulmonary disease. The patient is not in exacerbation. We will continue to monitor. 3. Abdominal distention. Because of this problem, we have ordered a CT of the abdomen and pelvis which basically showed severe constipation. So at this point, I am planning to start GoLYTELY on this patient and we will go from there. 4. History of seizure disorder. Aware. 5. History of mental retardation. Stable. 6. Atrial fibrillation with pacemaker. Aware. 7. Hypertension. Blood pressure is under control. We will continue with same management. 8. Hyperlipidemia. Aware. Will continue home medications. 9. Disposition. I think if the CO2 is better, I think we can discharge this patient tomorrow. cc: Juan Jose Bhatt MD MTDD
[2019-03-24] MEDS: KLONOPIN PO SCH (20:03)
[2019-03-24] MEDS: DEPAKOTE ER PO SCH (20:03)
[2019-03-24] MEDS: ZOCOR PO SCH (20:04)
[2019-03-25] MEDS: DUONEB (A & A) INH SCH ×6 (03:04→23:52)
[2019-03-25] MEDS: HUMALOG (PARKWAY) SUBQ SCH ×4 (06:07→20:28)
[2019-03-25] MEDS: MIRALAX PO SCH (08:34)
[2019-03-25] MEDS: LOVENOX SUBQ SCH ×3 (08:34→21:27)
[2019-03-25] MEDS: FLOMAX PO SCH (08:34)
[2019-03-25] MEDS ORDERED: CARDIZEM CD PO SCH (09:00)
[2019-03-25] MEDS: LOPRESSOR PO SCH ×2 (09:10→20:32)
[2019-03-25] MEDS: ZOCOR PO SCH (20:32)
[2019-03-25] MEDS: KLONOPIN PO SCH (20:32)
[2019-03-25] MEDS: DEPAKOTE ER PO SCH (20:32)
[2019-03-26] MEDS: DUONEB (A & A) INH SCH ×2 (04:17→07:25)
[2019-03-26] MEDS: HUMALOG (PARKWAY) SUBQ SCH (06:21)
[2019-03-26 07:36] VITALS: BP 151/79
--- NOTE | 2019-03-27 04:51 | DISCHARGE SUMMARY ---
ADMISSION DATE: 03/21/2019 DISCHARGE DATE: 03/26/2019 PRIMARY CARE PHYSICIAN: Listed as none. ADMISSION DIAGNOSES: 1. Chronic obstructive pulmonary disease with an acute exacerbation. 2. Acute hypercarbic respiratory failure. 3. Hyperkalemia. 4. Acute on chronic hypoxic and hypercapnic respiratory failure. 5. Mental retardation. 6. Seizure disorder. 7. Hypertension. 8. Hypothyroidism. 9. Chronic anticoagulation secondary to atrial fibrillation. DISCHARGE DIAGNOSES: 1. Acute exacerbation of chronic obstructive pulmonary disease, improved. 2. Acute on chronic hypoxic and hypercapnic respiratory failure, improved. 3. Constipation with fecal impaction, improved. 4. Mental retardation. 5. Seizure disorder. 6. Hypertension. 7. Hypothyroidism. SUMMARY OF FINDINGS: This is a 59-year-old male who is well known to our service with multiple admissions. Resides in a local group and is developmentally delayed. Seen in the emergency room after noted to be lethargic, had increased work of breathing, O2 sats reported to be in the 80s. When he got to the emergency room, his O2 sats were 100% on a non-rebreather, but his respiratory rates were 26-28 and he was placed on BiPAP. He was admitted to the intensive care unit. He improved with his breathing treatments and was transferred out to the medical floor. Was doing well and then began vomiting up some black liquid. We did an abdomen x-ray on 03/23/2019 that showed overly distended bowel loops which are actually less pronounced than on a prior study compared in December of 2018. We did a CT of the abdomen and pelvis and was found to have constipation and a fecal impaction with air distended colon. He was given a Fleet's enema and placed on MiraLAX daily. He had good results from the Fleet's enema. Was tolerating his diet well. He was supposed to be discharged on 03/25/2019 but when we removed his indwelling Isabel catheter he was having a little difficulty urinating so we monitored him and he urinated this morning so we discharged him home today in stable condition. DISCHARGE MEDICATIONS: DuoNebs b.i.d., allopurinol 300 mg p.o. daily, Eliquis 5 mg p.o. b.i.d., Optivar 0.05% drop to both eyes b.i.d., Symbicort 160/4.5 two puffs inhalation b.i.d., clonazepam 2 mg p.o. at bedtime, Artificial Tears 4 times daily, Cardizem CD 120 mg p.o. daily, divalproex 500 mg 2 tablets p.o. at bedtime, docusate calcium 240 mg p.o. every other day, finasteride 5 mg p.o. at bedtime, Lasix 40 mg p.o. daily, Vascepa 1 g 2 capsules b.i.d., levothyroxine 200 mcg p.o. daily, Amitiza 24 mcg p.o. b.i.d., Lopressor 100 mg p.o. b.i.d., Singulair 10 mg p.o. at bedtime, multivitamin p.o. daily, omeprazole 20 mg p.o. daily, MiraLAX 17 g p.o. b.i.d., Seroquel 300 mg p.o. t.i.d., simvastatin 10 mg p.o. at bedtime and Flomax 0.4 mg p.o. daily. FOLLOW-UP: He will follow up with his intermediate facility caregiver/provider/nurse practitioner in the home. TIME: A 35 minute discharge. Dictated by MELISSA Solorio for Juan Jose Bhatt MD Addendum: Patient seen and examined by myself. Agree with MELISSA note. It reflects my assessment and plan. Patient is being discharged in stable condition back to his care home. cc: MELISSA Solorio MD [facility]
== END 2019-03-26 08:37 | disposition home or self-care (01) | DRG 189 ==
LOC: P.ED 06:14 → P.ICU 08:36 → SUATTDRO 08:36 → P.MEDSURG 03-22 22:59
PROVIDERS: ATTEND Internal Medicine
CPT/HCPCS: 51702; 71010; 71045; 74019; 74020; 74176; 80053; 81001; 82550; 82805; 82948; 83605; 83735; 83880; 84484; 85025; 85027; 93005; 93010; 94640; 94761; 94762; 96374; 96375; 99285; 99291; A9270; J1650; J1815; J1940; J2405; J2930; XXXXX